=== PATIENT | female | born 1955 | race Caucasian/White ===

== ENCOUNTER 2016-12-08 17:00 | Emergency (ER) | payer OTHER ==
[~2016-12-08 17:00] MED LIST: ACTOS15 MG PO; ACTOS45 MG PO; ASPI-COR81 M1 PO; ASPIRIN81 M1 PO; ATENOLOL50 MG PO; BACTRIM DS 8001 TA1 PO; BUSPAR DIVIDOSE15 MG PO; BUSPIRONE15 MG PO; CIPRO250 MG PO; CIPROFLOXACIN500 MG PO; CLARITIN10 MG PO; DITROPAN XL15 MG PO; EC NAPROSYN500 MG PO; FEOSOL325 MG PO; FLOMAX0.4 MG PO; GLIPIZIDE10 MG; GLUCOPHAGE XR500 MG PO; HYDROCODONE BIT1 T11 PO; IMDUR ER30 MG PO; LANTUS100 U/ML SC; LISINOPRIL/HCTZ1 TA1 PO; LOTENSIN40 MG PO; MACROBID100 M1 PO; MEDROL DOSEPAK4 MG PO; METFORMIN1000 MG; METFORMIN500 MG PO; MOBIC15 MG PO; MOTRIN800 MG PO; NIACIN500 MG PO; NORVASC10 MG PO; PERCOCET 325 MG1 TA2 PO; PLAVIX75 M1 PO; PRILOSEC20 MG PO; PYRIDIUM200 MG PO; Phenergan25 MG PO; SIMVASTATIN40 MG PO; VESICARE10 MG PO; VICODIN 5/500 505 MG PO; VITAMIN D-32000 UNI1 PO; ZESTORETIC 12.51 TA2 PO; ZOCOR40 MG PO; ZOLOFT100 MG PO; Zofran4 MG PO
[2016-12-08 17:05] VITALS: BP 140/78
== END 2016-12-08 18:21 | disposition home or self-care (01) ==
LOC: ED 17:00
DX: S90.31XA Contusion of right foot, initial encounter (principal); Z95.5 Presence of coronary angioplasty implant and graft; Z87.891 Personal history of nicotine dependence; Z88.0 Allergy status to penicillin; Z88.1 Allergy status to other antibiotic agents; Z88.6 Allergy status to analgesic agent; Z79.82 Long term (current) use of aspirin; W20.8XXA Other cause of strike by thrown, projected or falling object, initial encounter; Y93.89 Activity, other specified; Y92.9 Unspecified place or not applicable; Y99.9 Unspecified external cause status

== ENCOUNTER → 2016-12-14 | Outpatient (CLI) | payer OTHER | END | disposition home or self-care (01) | LOC: MRI 10:21 | DX: M47.12 Other spondylosis with myelopathy, cervical region (principal) ==

== ENCOUNTER 2017-01-11 16:25 | Emergency (ER) | payer OTHER ==
[~2017-01-11] VITALS: Ht 152.4 cm; Wt 72.6 kg
[2017-01-11 16:35] VITALS: BP 156/72
[2017-01-11 17:00] LABS: BILIRUBIN NEGATIVE (NEGATIVE); BLOOD 3+ (NEGATIVE); CLARITY CLOUDY (CLEAR); COLOR YELLOW (YELLOW); GLUCOSE 3+ (NEGATIVE); KETONE NEGATIVE (NEGATIVE); LEUKO ESTERASE 2+ (NEGATIVE); NITRITE NEGATIVE (NEGATIVE); PH 5.5 (5.0-9.0); PROTEIN NEGATIVE (NEGATIVE); SPECIFIC GRAVITY <= 1.005 (1.005-1.030); UROBILINOGEN 0.2 E.U./dl (0.2-1.0)
[2017-01-11 17:16] LABS: BACTERIA TRACE; RBC TNTC rbc/hpf (0-2); URINE REFLEX COMMENT YES (NO)
[2017-01-11] MEDS ORDERED: PYRIDIUM200 M1 PO (17:38)
[2017-01-11] MEDS ORDERED: MACROBID100 M1 PO (17:38)
== END 2017-01-11 17:41 | disposition home or self-care (01) ==
LOC: ED 16:25
PROVIDERS: Nurse Practitioner Family
DX: N39.0 Urinary tract infection, site not specified (principal); R31.9 Hematuria, unspecified; Z88.0 Allergy status to penicillin; Z88.1 Allergy status to other antibiotic agents; Z88.6 Allergy status to analgesic agent; Z79.899 Other long term (current) drug therapy; Z79.82 Long term (current) use of aspirin

== ENCOUNTER → 2017-02-19 | Outpatient (CLI) | payer OTHER ==
[~2017-02-19] MED LIST changes: +B COMPLETE1 EACH PO; +GLIPIZIDE10 M2 PO; +IMDUR SA60 M1 PO; +NAPROXEN500 M1 PO; +NITROSTAT0.6 M1 SL; +PYRIDIUM200 M1 PO; +ZOLOFT50 MG PO
--- NOTE | ~2017-02-19 | ST ---
[place], [place] EXERCISE STRESS TEST REPORT NAME: JOSH GOLDMAN UNIT #: [id number] ROOM: DOCTOR: ARIAN CHAWLA MD BIRTHDATE: [birth year] DOS: 02/19/2017 Lexiscan portion of the Lexiscan Cardiolite. Baseline cardiogram sinus rhythm. With Lexiscan, no new EKG changes. No chest pain. Blood pressure and heart rate response was normal. FINAL IMPRESSION: No EKG changes with Lexiscan. No chest pain with Lexiscan. No dysrhythmia with Lexiscan. Blood pressure and heart rate response was normal. Nuclear images will be reported separately. ARIAN CHAWLA MD CM:STRESS:EXERCISE STRESS TEST REPORT [id number] ARIAN CHAWLA MD
== END | disposition home or self-care (01) ==
LOC: CARD 01:51
DX: R07.9 Chest pain, unspecified (principal); R53.81 Other malaise

== ENCOUNTER 2018-01-06 21:00 | Emergency (ER) | payer OTHER ==
[~2018-01-06] VITALS: Ht 152.4 cm; Wt 74.8 kg
--- NOTE | ~2018-01-06 | EKG ---
[place], [place] ELECTROCARDIOGRAM REPORT NAME: JOSH GOLDMAN UNIT #: [id number] ROOM: DOCTOR: COLUMBA MUNIZ MD BIRTHDATE: [birth year] DOS: 01/06/2018 TIME: 2142 hours. FINDINGS: 1. Sinus tachycardia at 116 beats per minute. 2. Incomplete right bundle-branch block. 3. No significant change from ECG of the previous day. COLUMBA MUNIZ MD CM:EKGRPT:ELECTROCARDIOGRAM REPORT [id number] COLUMBA MUNIZ MD
--- NOTE | ~2018-01-06 | EKG ---
[place], [place] ELECTROCARDIOGRAM REPORT NAME: JOSH GOLDMAN UNIT #: [id number] ROOM: DOCTOR: COLUMBA MUNIZ MD BIRTHDATE: [birth year] DOS: 01/06/2018 TIME: 2104 hours. FINDINGS: 1. Sinus tachycardia at 136 beats per minute. 2. Incomplete right bundle-branch block. 3. Mild upsloping ST segment depression in lateral chest lead. 4. No previous tracing is available for comparison. COLUMBA MUNIZ MD CM:EKGRPT:ELECTROCARDIOGRAM REPORT [id number] COLUMBA MUNIZ MD
--- NOTE | ~2018-01-06 | EKG ---
[place], [place] ELECTROCARDIOGRAM REPORT NAME: JOSH GOLDMAN UNIT #: [id number] ROOM: DOCTOR: COLUMBA MUNIZ MD BIRTHDATE: [birth year] DOS: 01/06/2018 TIME: 2222 hours. FINDINGS: 1. Sinus tachycardia at 128 beats per minute. 2. Incomplete right bundle-branch block. 3. Nonspecific upsloping ST segment depression in many chest leads. 4. No significant change from an ECG done about an hour and a half earlier. COLUMBA MUNIZ MD CM:EKGRPT:ELECTROCARDIOGRAM REPORT [id number] COLUMBA MUNIZ MD
[2018-01-06 21:24] LABS: BASO % 0.2 % (0.0-1.0); HEMATOCRIT 43.1 % (37.0-47.0); HEMOGLOBIN 14.2 g/dl (12.0-16.0); LYMPH # 1.7 10*3/uL (1.3-4.4); LYMPH % 11.7 % (27.0-41.0); MEAN CELL VOLUME 85.7 fl (81.0-99.0); MEAN CORPUSCULAR HGB 28.2 pg (27.0-31.0); MEAN CORPUSCULAR HGB CONC 32.9 g/dl (33.0-37.0); MEAN PLATELET VOLUME 11.8 fl (9.6-12.3); MONO # 0.1 10*3/uL (0.1-1.0); MONO % 0.8 % (3.0-9.0); NEUT # 12.3 10*3/uL (2.3-7.9); NEUT % 86.5 % (47.0-73.0); PLATELET COUNT AUTOMATED 257 10*3/uL (130-400); RED BLOOD COUNT 5.03 10*6/uL (4.10-5.10); RED CELL DISTRI WIDTH 13.7 % (0-14.5); WHITE BLOOD COUNT 14.3 10*3/uL (4.8-10.8)
[2018-01-06 22:00] LABS: ACT PARTIAL THROMBO TIME 21.9 SECONDS (20.8-31.5)
[2018-01-06 22:10] LABS: ALBUMIN 3.8 gm/dl (3.1-4.5); CREATININE 1.37 mg/dL (0.55-1.02); POTASSIUM 4.8 mmol/L (3.5-5.1); TOTAL PROTEIN 7.8 gm/dL (6.4-8.2)
[2018-01-06 22:13] LABS: TROPONIN I 0.805 ng/ml (<0.045)
[2018-01-06 22:57] VITALS: BP 131/74
== END 2018-01-07 03:19 | disposition short-term general hospital (02) ==
LOC: ED 21:00
PROVIDERS: Emergency Medicine Emergency Medical Services
DX: I20.0 Unstable angina (principal); E11.65 Type 2 diabetes mellitus with hyperglycemia; K21.9 Gastro-esophageal reflux disease without esophagitis; I10 Essential (primary) hypertension; M19.90 Unspecified osteoarthritis, unspecified site; Z98.890 Other specified postprocedural states; Z87.891 Personal history of nicotine dependence; Z95.5 Presence of coronary angioplasty implant and graft; Z79.899 Other long term (current) drug therapy; Z88.0 Allergy status to penicillin; Z88.1 Allergy status to other antibiotic agents; Z88.5 Allergy status to narcotic agent; Z79.82 Long term (current) use of aspirin

== ENCOUNTER → 2018-10-23 | Outpatient (CLI) | payer MEDICARE ==
[~2018-10-23] MED LIST changes: +BRILINTA90 M1 PO; +GLUCOPHAGE1000 MG PO; +HUMALOG100 UNIT/2 SQ; +LANTUS SOL100 UNIT/1 SC; +LISINOPRIL-HCT1 EACH PO; +NEURONTIN100 MG PO; +PRAVACHOL80 M1 PO; +RANEXA1000 M1 PO
--- NOTE | ~2018-10-23 | ST ---
[place], [place] EXERCISE STRESS TEST REPORT NAME: JOSH GOLDMAN UNIT #: [id number] ROOM: DOCTOR: SHERIN PEREZ [facility] BIRTHDATE: [birth year] DOS: 10/23/2018 LEXISCAN WITH CARDIOLITE The patient received Lexiscan 0.4 mg over 10 seconds. Isotope was injected. Heart rate is 113. No conclusive electrocardiographic changes for myocardial ischemia noted. No complication noted. The patient tolerated the procedure well. Myocardial perfusion scan to follow. IVETH DUFF MD CM:STRESS:EXERCISE STRESS TEST REPORT [id number] ARIAN DUFF MD [facility]
--- NOTE | 2018-10-23 09:45 | NUR ---
INFORMED CONSENT OBTAINED FOR A LEXISCAN STRESS TEST WITH DR. DUFF. RESTING EKG NSR WITH A HT RT OF 73 AND BP OF 120/64. POX 100% VIA RA, BREATH SOUNDS CLEAR. COMPLETED ONE MINUTE OF A LEXISCAN PROTOCOL RECIEVING LEXISCAN 0.4 MG OVER 10 SECONDS. DEVELOPED A "FUNNY FEELING" THAT WAS RELIEVED IN RECOVERY. HAD A PEAK HT RT OF 113, AND A BP OF 130/58. LAST RECOVERY HT RT OF 104 AND A BP OF 120/64. AWAITING NUCLEAR IMAGING IN STABLE CONDITION.
== END | disposition home or self-care (01) ==
LOC: CARD 02:02
DX: I25.110 Atherosclerotic heart disease of native coronary artery with unstable angina pectoris (principal)

== ENCOUNTER → 2019-03-30 | Outpatient (CLI) | payer MEDICARE, MEDICAID ==
[2019-03-30 09:41] LABS: BASO % 0.5 % (0.0-1.0); EOS # 0.2 10*3/uL (0.0-0.4); EOS % 2.7 % (1.0-4.0); HEMATOCRIT 40.2 % (37.0-47.0); HEMOGLOBIN 12.4 g/dl (12.0-16.0); LYMPH # 2.2 10*3/uL (1.3-4.4); LYMPH % 26.2 % (27.0-41.0); MEAN CELL VOLUME 88.4 fl (81.0-99.0); MEAN CORPUSCULAR HGB 27.3 pg (27.0-31.0); MEAN CORPUSCULAR HGB CONC 30.8 g/dl (33.0-37.0); MEAN PLATELET VOLUME 11.8 fl (9.6-12.3); MONO # 0.6 10*3/uL (0.1-1.0); MONO % 7.5 % (3.0-9.0); NEUT # 5.2 10*3/uL (2.3-7.9); NEUT % 62.6 % (47.0-73.0); PLATELET COUNT AUTOMATED 224 10*3/uL (130-400); RED BLOOD COUNT 4.55 10*6/uL (4.10-5.10); RED CELL DISTRI WIDTH 14.6 % (0-14.5); WHITE BLOOD COUNT 8.4 10*3/uL (4.8-10.8)
[2019-03-30 10:21] LABS: BUN 18 mg/dl (7-24); CHLORIDE 103 mmol/L (98-107); CHOLESTEROL 155 mg/dL (<200); POTASSIUM 4.3 mmol/L (3.5-5.1); SGOT/AST 21 IU/L (3-35); SGPT/ALT 18 U/L (12-78); SODIUM 139 mmol/L (136-145)
[2019-03-30 10:31] LABS: CREATININE 0.85 mg/dL (0.55-1.02); HDL CHOLESTEROL 41 mg/dl (40-60); LDL CHOLESTEROL 79 mg/dL (9-159); TRIGLYCERIDES 175 mg/dl (<150); VLDL CHOLESTEROL 35 mg/dL (6-40)
== END | disposition home or self-care (01) ==
LOC: LAB 09:09
PROVIDERS: Internal Medicine Cardiovascular Disease
DX: I25.119 Atherosclerotic heart disease of native coronary artery with unspecified angina pectoris (principal); R53.82 Chronic fatigue, unspecified

== ENCOUNTER → 2019-04-09 | Outpatient (CLI) | payer MEDICARE, MEDICAID ==
--- NOTE | ~2019-04-09 | ST ---
[place], [place] EXERCISE STRESS TEST REPORT NAME: JOSH GOLDMAN UNIT #: [id number] ROOM: DOCTOR: SHERIN PEREZ [facility] BIRTHDATE: [birth year] DOS: 04/09/2019 The patient received Lexiscan 0.4 mg over 10 seconds. Flattening of the ST segment, but not critical in inferior leads and heart rate obtained was 90, blood pressure response is good. No complication from the Lexiscan infusion and myocardial perfusion scan to follow. Heart rate is 102 at this time. Nuclear scan to follow. IVETH DUFF MD CM:STRESS:EXERCISE STRESS TEST REPORT [id number] IVETH DUFF MD [facility]
--- NOTE | 2019-04-09 12:00 | NUR ---
INFORMED CONSENT OBTAINED FOR LEXISCAN NUCLEAR STRESS TEST WITH DR. DUFF. RESTING EKG NSR WITH A RESTING HR OF 71 WITH BP OF 128/60. LUNGS CLEAR WITH SPO2 OF 99% ON ROOM AIR. PT COMPLETED A 1:00 LEXISCAN PROTOCOL RECEIVING LEXISCAN 0.4 MG IV OVER 10 SECONDS. HAD NO CHEST PAIN WITH NONDIAGNOSTIC ST CHANGES. HAD C/O FEELING SOB THAT WAS RELIEVED IN RECOVERY. HAD A PEAK HR OF 101 WITH BP OF 118/58. LAST RECOVERY HR OF 89 WITH BP OF 128/64. AWAITING SCANNING IN STABLE CONDITION.
== END | disposition home or self-care (01) ==
LOC: CARD 00:49
DX: I25.119 Atherosclerotic heart disease of native coronary artery with unspecified angina pectoris (principal); I10 Essential (primary) hypertension; R53.82 Chronic fatigue, unspecified; R06.02 Shortness of breath; Z95.5 Presence of coronary angioplasty implant and graft

== ENCOUNTER 2019-05-16 23:55 | Emergency (ER) | payer MEDICARE, MEDICAID ==
[~2019-05-16] VITALS: Wt 74.4 kg
[2019-05-17 00:15] LABS: BASO % 0.4 % (0.0-1.0); EOS # 0.3 10*3/uL (0.0-0.4); EOS % 3.2 % (1.0-4.0); HEMATOCRIT 40.7 % (37.0-47.0); LYMPH # 3.2 10*3/uL (1.3-4.4); LYMPH % 34.3 % (27.0-41.0); MEAN CELL VOLUME 86.8 fl (81.0-99.0); MEAN CORPUSCULAR HGB 27.7 pg (27.0-31.0); MEAN CORPUSCULAR HGB CONC 31.9 g/dl (33.0-37.0); MEAN PLATELET VOLUME 11.4 fl (9.6-12.3); MONO # 0.9 10*3/uL (0.1-1.0); MONO % 9.2 % (3.0-9.0); NEUT # 4.9 10*3/uL (2.3-7.9); NEUT % 52.5 % (47.0-73.0); PLATELET COUNT AUTOMATED 244 10*3/uL (130-400); RED BLOOD COUNT 4.69 10*6/uL (4.10-5.10); RED CELL DISTRI WIDTH 14.7 % (0-14.5); WHITE BLOOD COUNT 9.3 10*3/uL (4.8-10.8)
[2019-05-17 00:26] LABS: ACT PARTIAL THROMBO TIME 22.2 SECONDS (20.0-32.1); INTERNATIONAL NORM RATIO 0.9 (2.0-3.5)
[2019-05-17 00:32] LABS: ALBUMIN 3.8 gm/dl (3.1-4.5); CREATININE 1.23 mg/dL (0.55-1.02); POTASSIUM 3.8 mmol/L (3.5-5.1); TOTAL PROTEIN 7.5 gm/dL (6.4-8.2); TROPONIN I 0.037 ng/ml (<0.045)
[2019-05-17 00:50] VITALS: BP 201/107
== END 2019-05-17 03:15 | disposition short-term general hospital (02) ==
LOC: ED 23:55
PROVIDERS: Emergency Medicine Emergency Medical Services
DX: I25.9 Chronic ischemic heart disease, unspecified (principal); I25.10 Atherosclerotic heart disease of native coronary artery without angina pectoris; E11.9 Type 2 diabetes mellitus without complications; K21.9 Gastro-esophageal reflux disease without esophagitis; I10 Essential (primary) hypertension; I25.2 Old myocardial infarction; Z88.0 Allergy status to penicillin; Z88.1 Allergy status to other antibiotic agents; Z88.5 Allergy status to narcotic agent; Z79.82 Long term (current) use of aspirin; Z79.899 Other long term (current) drug therapy; Z87.891 Personal history of nicotine dependence

== ENCOUNTER 2019-06-24 20:56 | Emergency (ER) | payer MEDICARE, MEDICAID ==
[~2019-06-24] VITALS: Ht 162.5 cm; Wt 72.6 kg
[2019-06-24 21:00] VITALS: BP 126/74
[2019-06-24 21:13] LABS: BILIRUBIN NEGATIVE (NEGATIVE); BLOOD 3+ (NEGATIVE); CLARITY CLOUDY (CLEAR); COLOR YELLOW (YELLOW); GLUCOSE 2+ (NEGATIVE); KETONE NEGATIVE (NEGATIVE); LEUKO ESTERASE 1+ (NEGATIVE); NITRITE POSITIVE (NEGATIVE); UROBILINOGEN 0.2 E.U./dl (0.2-1.0)
[2019-06-24 21:43] LABS: BACTERIA 2+; WBC TNTC wbc/hpf (0-5)
[2019-06-24] MEDS ORDERED: PYRIDIUM100 MG PO (22:59)
[2019-06-24] MEDS ORDERED: CEPHALEXIN500 M1 PO (22:59)
== END 2019-06-24 23:28 | disposition home or self-care (01) ==
LOC: ED 20:56
PROVIDERS: Emergency Medicine
DX: N39.0 Urinary tract infection, site not specified (principal); I25.10 Atherosclerotic heart disease of native coronary artery without angina pectoris; E11.9 Type 2 diabetes mellitus without complications; K21.9 Gastro-esophageal reflux disease without esophagitis; I10 Essential (primary) hypertension; M19.90 Unspecified osteoarthritis, unspecified site; I25.2 Old myocardial infarction; E78.00 Pure hypercholesterolemia, unspecified; Z88.0 Allergy status to penicillin; Z88.1 Allergy status to other antibiotic agents; Z79.899 Other long term (current) drug therapy; Z79.82 Long term (current) use of aspirin; Z79.4 Long term (current) use of insulin; Z95.5 Presence of coronary angioplasty implant and graft

== ENCOUNTER 2019-10-14 18:39 | Emergency (ER) | payer OTHER ==
[~2019-10-14] VITALS: Ht 152.4 cm; Wt 72.1 kg
[~2019-10-14 18:39] MED LIST changes: +CEPHALEXIN500 M1 PO; +PYRIDIUM100 MG PO
[2019-10-14 19:02] LABS: BASO # 0.1 10*3/uL (0.0-0.1); BASO % 0.4 % (0.0-1.0); EOS # 0.4 10*3/uL (0.0-0.4); EOS % 3.7 % (1.0-4.0); HEMATOCRIT 40.9 % (37.0-47.0); HEMOGLOBIN 12.4 g/dl (12.0-16.0); LYMPH % 17.8 % (27.0-41.0); MEAN CELL VOLUME 80.8 fl (81.0-99.0); MEAN CORPUSCULAR HGB 24.5 pg (27.0-31.0); MEAN CORPUSCULAR HGB CONC 30.3 g/dl (33.0-37.0); MEAN PLATELET VOLUME 10.5 fl (9.6-12.3); MONO # 0.7 10*3/uL (0.1-1.0); MONO % 6.2 % (3.0-9.0); NEUT # 8.2 10*3/uL (2.3-7.9); NEUT % 71.6 % (47.0-73.0); PLATELET COUNT AUTOMATED 246 10*3/uL (130-400); RED BLOOD COUNT 5.06 10*6/uL (4.10-5.10); RED CELL DISTRI WIDTH 16.7 % (0-14.5); WHITE BLOOD COUNT 11.5 10*3/uL (4.8-10.8)
[2019-10-14 19:13] LABS: ACT PARTIAL THROMBO TIME 22.7 SECONDS (20.0-32.1); INTERNATIONAL NORM RATIO 0.9 (2.0-3.5)
[2019-10-14 19:18] LABS: ALBUMIN 3.5 gm/dl (3.1-4.5); CREATININE 1.22 mg/dL (0.55-1.02); POTASSIUM 4.1 mmol/L (3.5-5.1); TOTAL PROTEIN 7.3 gm/dL (6.4-8.2)
[2019-10-14 19:30] LABS: TROPONIN I 3.14 ng/ml (<0.045)
[2019-10-14 20:32] VITALS: BP 134/58
== END 2019-10-14 21:25 | disposition short-term general hospital (02) ==
LOC: ED 18:39
PROVIDERS: Emergency Medicine
DX: I21.4 Non-ST elevation (NSTEMI) myocardial infarction (principal); I25.10 Atherosclerotic heart disease of native coronary artery without angina pectoris; I25.2 Old myocardial infarction; K21.9 Gastro-esophageal reflux disease without esophagitis; I10 Essential (primary) hypertension; M19.90 Unspecified osteoarthritis, unspecified site; J44.9 Chronic obstructive pulmonary disease, unspecified; E78.00 Pure hypercholesterolemia, unspecified; Z79.82 Long term (current) use of aspirin; Z87.891 Personal history of nicotine dependence; Z88.0 Allergy status to penicillin; Z88.1 Allergy status to other antibiotic agents; Z88.5 Allergy status to narcotic agent; Z79.2 Long term (current) use of antibiotics; Z79.899 Other long term (current) drug therapy; Z79.4 Long term (current) use of insulin

== ENCOUNTER 2020-03-27 00:20 | Observation (INO) | payer OTHER ==
[~2020-03-27] VITALS: Ht 152.4 cm; Wt 74.5 kg
[~2020-03-27 00:20] MED LIST changes: +CLOPIDOGREL75 MG PO; +GABAPENTIN400 MG PO; +ISOSORBIDE MON120 MG PO; +LISINOPRIL2.5 MG PO; +METOPROLOL SUCC50 M1 PO
[2020-03-27 00:32] LABS: BASO % 0.3 % (0.0-1.0); EOS # 0.2 10*3/uL (0.0-0.4); EOS % 1.9 % (1.0-4.0); HEMATOCRIT 39.2 % (37.0-47.0); LYMPH # 2.1 10*3/uL (1.3-4.4); LYMPH % 20.5 % (27.0-41.0); MEAN CELL VOLUME 77.5 fl (81.0-99.0); MEAN CORPUSCULAR HGB 22.7 pg (27.0-31.0); MEAN CORPUSCULAR HGB CONC 29.3 g/dl (33.0-37.0); MEAN PLATELET VOLUME 10.2 fl (9.6-12.3); MONO # 0.6 10*3/uL (0.1-1.0); NEUT # 7.4 10*3/uL (2.3-7.9); NEUT % 70.8 % (47.0-73.0); PLATELET COUNT AUTOMATED 261 10*3/uL (130-400); RED BLOOD COUNT 5.06 10*6/uL (4.10-5.10); RED CELL DISTRI WIDTH 17.3 % (0-14.5); WHITE BLOOD COUNT 10.4 10*3/uL (4.8-10.8)
[2020-03-27 00:42] LABS: ACT PARTIAL THROMBO TIME 23.1 SECONDS (20.0-32.1)
[2020-03-27 00:48] LABS: ALBUMIN 3.6 gm/dl (3.1-4.5); ALKALINE PHOSPHATASE 72 U/L (45-117); BUN 16 mg/dl (7-24); CHLORIDE 109 mmol/L (98-107); POTASSIUM 3.6 mmol/L (3.5-5.1); SGOT/AST 16 IU/L (3-35); SGPT/ALT 15 U/L (12-78); SODIUM 140 mmol/L (136-145); TOTAL PROTEIN 7.6 gm/dL (6.4-8.2)
[2020-03-27 00:49] LABS: TROPONIN I 0.031 ng/ml (<0.045)
[2020-03-27 01:10] VITALS: BP 154/78
[2020-03-27 02:07] VITALS: BP 142/76
[2020-03-27 04:55] VITALS: BP 158/64
[2020-03-27] MEDS ORDERED: ARTHRITIS PAIN650 M3 PO (05:24)
[2020-03-27] MEDS ORDERED: TRICOR145 M1 PO (05:27)
[2020-03-27 06:37] LABS: BASO % 0.4 % (0.0-1.0); EOS % 0.5 % (1.0-4.0); HEMATOCRIT 34.1 % (37.0-47.0); LYMPH # 1.8 10*3/uL (1.3-4.4); LYMPH % 22.5 % (27.0-41.0); MEAN CELL VOLUME 77.5 fl (81.0-99.0); MEAN CORPUSCULAR HGB 22.7 pg (27.0-31.0); MEAN CORPUSCULAR HGB CONC 29.3 g/dl (33.0-37.0); MEAN PLATELET VOLUME 9.9 fl (9.6-12.3); MONO # 0.7 10*3/uL (0.1-1.0); NEUT # 5.6 10*3/uL (2.3-7.9); NEUT % 68.2 % (47.0-73.0); PLATELET COUNT AUTOMATED 210 10*3/uL (130-400); RED CELL DISTRI WIDTH 17.1 % (0-14.5); WHITE BLOOD COUNT 8.2 10*3/uL (4.8-10.8)
[2020-03-27 07:07] LABS: BUN 17 mg/dl (7-24); CHLORIDE 112 mmol/L (98-107); CREATININE 0.69 mg/dL (0.55-1.02); POTASSIUM 4.2 mmol/L (3.5-5.1); SODIUM 142 mmol/L (136-145)
[2020-03-27 08:00] VITALS: BP 138/59
[2020-03-27] MEDS ORDERED: ENOXAPARIN100 MG/1 M SC (09:03)
[2020-03-27] MEDS ORDERED: LOPRESSOR25 MG PO (09:04)
== END 2020-03-27 09:24 | disposition short-term general hospital (02) ==
LOC: ED 00:20 → EDHOLD 03:41 → 5E 03:41 → ICCU 04:59
PROVIDERS: Emergency Medicine Emergency Medical Services; Internal Medicine; ADMIT Student in an Organized Health Care Education/Training Program
DX: I21.4 Non-ST elevation (NSTEMI) myocardial infarction (principal); R00.0 Tachycardia, unspecified; E87.8 Other disorders of electrolyte and fluid balance, not elsewhere classified; E11.65 Type 2 diabetes mellitus with hyperglycemia; I25.10 Atherosclerotic heart disease of native coronary artery without angina pectoris; K21.9 Gastro-esophageal reflux disease without esophagitis; I11.0 Hypertensive heart disease with heart failure; I50.9 Heart failure, unspecified; D50.9 Iron deficiency anemia, unspecified

== ENCOUNTER → 2020-06-13 | Outpatient (CLI) | payer MEDICARE ==
[~2020-06-13] MED LIST changes: +ARTHRITIS PAIN650 M3 PO; +ENOXAPARIN100 MG/1 M SC; +LOPRESSOR25 MG PO; +TRICOR145 M1 PO
[2020-06-13 11:39] LABS: BASO % 0.4 % (0.0-1.0); EOS # 0.3 10*3/uL (0.0-0.4); EOS % 2.9 % (1.0-4.0); HEMATOCRIT 34.6 % (37.0-47.0); LYMPH # 2.1 10*3/uL (1.3-4.4); LYMPH % 22.8 % (27.0-41.0); MEAN CELL VOLUME 75.2 fl (81.0-99.0); MEAN CORPUSCULAR HGB 21.3 pg (27.0-31.0); MEAN CORPUSCULAR HGB CONC 28.3 g/dl (33.0-37.0); MEAN PLATELET VOLUME 10.9 fl (9.6-12.3); MONO # 0.7 10*3/uL (0.1-1.0); NEUT # 5.9 10*3/uL (2.3-7.9); NEUT % 65.6 % (47.0-73.0); PLATELET COUNT AUTOMATED 305 10*3/uL (130-400); RED CELL DISTRI WIDTH 17.2 % (0-14.5)
== END | disposition home or self-care (01) ==
LOC: LAB 11:00
PROVIDERS: ATTEND Nurse Practitioner Family
DX: D50.0 Iron deficiency anemia secondary to blood loss (chronic) (principal)

== ENCOUNTER 2020-12-09 21:29 | Observation (INO) | payer OTHER ==
[~2020-12-09] VITALS: Ht 152 cm; Wt 70.8 kg
[2020-12-09 21:36] VITALS: BP 104/66
[2020-12-09 21:51] LABS: BASO % 0.4 % (0.0-1.0); EOS # 0.3 10*3/uL (0.0-0.4); EOS % 3.6 % (1.0-4.0); HEMATOCRIT 35.3 % (37.0-47.0); LYMPH # 2.8 10*3/uL (1.3-4.4); LYMPH % 38.8 % (27.0-41.0); MEAN CORPUSCULAR HGB 21.4 pg (27.0-31.0); MEAN CORPUSCULAR HGB CONC 28.9 g/dl (33.0-37.0); MEAN PLATELET VOLUME 9.8 fl (9.6-12.3); MONO # 0.6 10*3/uL (0.1-1.0); NEUT # 3.5 10*3/uL (2.3-7.9); NEUT % 48.8 % (47.0-73.0); PLATELET COUNT AUTOMATED 238 10*3/uL (130-400); RED BLOOD COUNT 4.77 10*6/uL (4.10-5.10); RED CELL DISTRI WIDTH 18.9 % (0-14.5); WHITE BLOOD COUNT 7.2 10*3/uL (4.8-10.8)
[2020-12-09 22:04] LABS: ACT PARTIAL THROMBO TIME 21.6 SECONDS (20.0-32.1)
[2020-12-09 22:09] LABS: ALBUMIN 3.5 gm/dl (3.1-4.5); ALKALINE PHOSPHATASE 67 U/L (45-117); BUN 21 mg/dl (7-24); CHLORIDE 104 mmol/L (98-107); CREATININE 1.09 mg/dL (0.55-1.02); POTASSIUM 3.7 mmol/L (3.5-5.1); SGOT/AST 16 IU/L (3-35); SGPT/ALT 15 U/L (12-78); SODIUM 136 mmol/L (136-145); TOTAL PROTEIN 7.1 gm/dL (6.4-8.2)
[2020-12-09 22:10] LABS: TROPONIN I 0.038 ng/ml (<0.045)
[2020-12-09 23:35] VITALS: BP 96/60
[2020-12-10 00:06] VITALS: BP 140/100
[2020-12-10] MEDS ORDERED: METOPROLOL SUCC50 M1 PO (00:14)
[2020-12-10] MEDS ORDERED: NEURONTIN400 MG PO (00:14)
[2020-12-10] MEDS ORDERED: LISINOPRIL20 MG PO (00:16)
[2020-12-10] MEDS ORDERED: HYDR25T PO (00:17)
[2020-12-10] MEDS ORDERED: PROTONIX TR40 MG PO (00:19)
[2020-12-10 06:27] LABS: CHLORIDE 106 mmol/L (98-107); POTASSIUM 3.9 mmol/L (3.5-5.1); SGPT/ALT 16 U/L (12-78); SODIUM 137 mmol/L (136-145)
[2020-12-10 06:30] LABS: BASO # 0.1 10*3/uL (0.0-0.1); BASO % 0.7 % (0.0-1.0); EOS # 0.4 10*3/uL (0.0-0.4); EOS % 5.1 % (1.0-4.0); LYMPH # 3.2 10*3/uL (1.3-4.4); LYMPH % 42.1 % (27.0-41.0); MEAN CELL VOLUME 74.2 fl (81.0-99.0); MEAN CORPUSCULAR HGB CONC 28.2 g/dl (33.0-37.0); MEAN PLATELET VOLUME 10.2 fl (9.6-12.3); MONO # 0.6 10*3/uL (0.1-1.0); NEUT # 3.3 10*3/uL (2.3-7.9); NEUT % 43.7 % (47.0-73.0); PLATELET COUNT AUTOMATED 225 10*3/uL (130-400); RED BLOOD COUNT 4.58 10*6/uL (4.10-5.10); RED CELL DISTRI WIDTH 19.2 % (0-14.5); WHITE BLOOD COUNT 7.5 10*3/uL (4.8-10.8)
[2020-12-10 06:46] LABS: ALBUMIN 3.5 gm/dl (3.1-4.5); ALKALINE PHOSPHATASE 48 U/L (45-117); BUN 20 mg/dl (7-24); CHOLESTEROL 163 mg/dL (<200); CREATININE 0.77 mg/dL (0.55-1.02); HDL CHOLESTEROL 43 mg/dl (40-60); LDL CHOLESTEROL 64 mg/dL (9-159); SGOT/AST 16 IU/L (3-35); TOTAL PROTEIN 6.9 gm/dL (6.4-8.2); TRIGLYCERIDES 278 mg/dl (<150); VLDL CHOLESTEROL 56 mg/dL (6-40)
[2020-12-10 07:30] LABS: VITAMIN D, 25-HYDROXY 63.6 ng/mL (30-100)
[2020-12-10 12:00] VITALS: BP 137/56
[2020-12-10 16:00] VITALS: BP 155/58
[2020-12-10 20:00] VITALS: BP 140/56
[2020-12-11] VITALS: BP 112/51
[2020-12-11 06:14] LABS: CREATININE 1.51 mg/dL (0.55-1.02); POTASSIUM 4.3 mmol/L (3.5-5.1)
[2020-12-11 08:00] VITALS: BP 115/49
[2020-12-11 12:00] VITALS: BP 139/46
[2020-12-11 16:00] VITALS: BP 131/45
[2020-12-11 20:00] VITALS: BP 133/58
[2020-12-12] VITALS: BP 130/53
[2020-12-12 06:21] LABS: BASO % 0.3 % (0.0-1.0); EOS # 0.3 10*3/uL (0.0-0.4); EOS % 4.2 % (1.0-4.0); HEMATOCRIT 35.7 % (37.0-47.0); LYMPH # 2.5 10*3/uL (1.3-4.4); LYMPH % 34.9 % (27.0-41.0); MEAN CELL VOLUME 74.5 fl (81.0-99.0); MEAN CORPUSCULAR HGB 21.5 pg (27.0-31.0); MEAN CORPUSCULAR HGB CONC 28.9 g/dl (33.0-37.0); MONO # 0.6 10*3/uL (0.1-1.0); MONO % 8.4 % (3.0-9.0); NEUT # 3.7 10*3/uL (2.3-7.9); NEUT % 51.6 % (47.0-73.0); PLATELET COUNT AUTOMATED 222 10*3/uL (130-400); RED BLOOD COUNT 4.79 10*6/uL (4.10-5.10); WHITE BLOOD COUNT 7.2 10*3/uL (4.8-10.8)
[2020-12-12 06:42] LABS: ALBUMIN 3.3 gm/dl (3.1-4.5); ALKALINE PHOSPHATASE 42 U/L (45-117); BUN 19 mg/dl (7-24); CHLORIDE 103 mmol/L (98-107); CREATININE 0.87 mg/dL (0.55-1.02); POTASSIUM 4.9 mmol/L (3.5-5.1); SGOT/AST 19 IU/L (3-35); SGPT/ALT 15 U/L (12-78); SODIUM 135 mmol/L (136-145); TOTAL PROTEIN 6.7 gm/dL (6.4-8.2)
[2020-12-12 08:00] VITALS: BP 124/62
[2020-12-12 12:00] VITALS: BP 133/58
[2020-12-12 16:00] VITALS: BP 153/50
== END 2020-12-12 16:55 | disposition short-term general hospital (02) ==
LOC: ED 21:29 → 5E 22:54 → EDHOLD 22:54 → 5E 23:13
PROVIDERS: Emergency Medicine; Internal Medicine; Student in an Organized Health Care Education/Training Program; ADMIT Student in an Organized Health Care Education/Training Program; ATTEND Student in an Organized Health Care Education/Training Program
DX: I21.4 Non-ST elevation (NSTEMI) myocardial infarction (principal); N17.0 Acute kidney failure with tubular necrosis; R00.0 Tachycardia, unspecified; I25.10 Atherosclerotic heart disease of native coronary artery without angina pectoris; K21.9 Gastro-esophageal reflux disease without esophagitis; E11.9 Type 2 diabetes mellitus without complications; I11.0 Hypertensive heart disease with heart failure; I50.9 Heart failure, unspecified; D50.9 Iron deficiency anemia, unspecified; E11.65 Type 2 diabetes mellitus with hyperglycemia; E78.5 Hyperlipidemia, unspecified; M19.90 Unspecified osteoarthritis, unspecified site; J96.10 Chronic respiratory failure, unspecified whether with hypoxia or hypercapnia; Z88.1 Allergy status to other antibiotic agents; Z88.0 Allergy status to penicillin; Z88.8 Allergy status to other drugs, medicaments and biological substances

== ENCOUNTER 2020-12-29 20:48 | Emergency (ER) | payer OTHER ==
[~2020-12-29] VITALS: Ht 152.4 cm; Wt 73.2 kg
[~2020-12-29 20:48] MED LIST changes: +HYDR25T PO; +LISINOPRIL20 MG PO; +NEURONTIN400 MG PO; +PROTONIX TR40 MG PO
[2020-12-29 21:07] LABS: BASO % 0.5 % (0.0-1.0); EOS # 0.3 10*3/uL (0.0-0.4); EOS % 3.9 % (1.0-4.0); HEMATOCRIT 35.7 % (37.0-47.0); LYMPH # 2.9 10*3/uL (1.3-4.4); LYMPH % 36.4 % (27.0-41.0); MEAN CORPUSCULAR HGB 21.5 pg (27.0-31.0); MEAN CORPUSCULAR HGB CONC 29.4 g/dl (33.0-37.0); MEAN PLATELET VOLUME 10.5 fl (9.6-12.3); MONO # 0.8 10*3/uL (0.1-1.0); MONO % 9.7 % (3.0-9.0); NEUT # 3.9 10*3/uL (2.3-7.9); NEUT % 49.2 % (47.0-73.0); PLATELET COUNT AUTOMATED 279 10*3/uL (130-400); RED BLOOD COUNT 4.89 10*6/uL (4.10-5.10); WHITE BLOOD COUNT 7.9 10*3/uL (4.8-10.8)
[2020-12-29 21:21] LABS: ACT PARTIAL THROMBO TIME 20.4 SECONDS (20.0-32.1)
[2020-12-29 21:23] LABS: ALBUMIN 3.6 gm/dl (3.1-4.5); ALKALINE PHOSPHATASE 94 U/L (45-117); BUN 24 mg/dl (7-24); CHLORIDE 101 mmol/L (98-107); CREATININE 1.04 mg/dL (0.55-1.02); POTASSIUM 4.2 mmol/L (3.5-5.1); SGOT/AST 31 IU/L (3-35); SGPT/ALT 16 U/L (12-78); SODIUM 135 mmol/L (136-145); TOTAL PROTEIN 7.4 gm/dL (6.4-8.2)
[2020-12-30 02:08] VITALS: BP 116/75
== END 2020-12-30 03:04 | disposition short-term general hospital (02) ==
LOC: ED 20:48
PROVIDERS: Emergency Medicine
DX: I21.4 Non-ST elevation (NSTEMI) myocardial infarction (principal); E11.9 Type 2 diabetes mellitus without complications; I25.10 Atherosclerotic heart disease of native coronary artery without angina pectoris; I11.0 Hypertensive heart disease with heart failure; I50.9 Heart failure, unspecified; Z87.891 Personal history of nicotine dependence; Z95.5 Presence of coronary angioplasty implant and graft; Z79.82 Long term (current) use of aspirin; Z79.899 Other long term (current) drug therapy; Z88.0 Allergy status to penicillin; Z88.1 Allergy status to other antibiotic agents; Z88.5 Allergy status to narcotic agent

== ENCOUNTER → 2021-03-02 | Outpatient (CLI) | payer OTHER | END | disposition home or self-care (01) | LOC: RAD 10:51 | PROVIDERS: ATTEND Internal Medicine | DX: M50.30 Other cervical disc degeneration, unspecified cervical region (principal); M47.812 Spondylosis without myelopathy or radiculopathy, cervical region; M48.02 Spinal stenosis, cervical region; M25.78 Osteophyte, vertebrae ==

== ENCOUNTER 2021-05-14 03:30 | Inpatient (IN) | payer OTHER ==
[~2021-05-14] VITALS: Ht 152.4 cm; Wt 72.7 kg
[2021-05-14] VITALS (11 sets, daily range): BP systolic 75–170; BP diastolic 42–87
[2021-05-14 03:56] LABS: BASO % 0.5 % (0.0-1.0); EOS # 0.3 10*3/uL (0.0-0.4); EOS % 3.8 % (1.0-4.0); HEMATOCRIT 33.8 % (37.0-47.0); LYMPH # 2.5 10*3/uL (1.3-4.4); LYMPH % 33.7 % (27.0-41.0); MEAN CELL VOLUME 72.2 fl (81.0-99.0); MEAN CORPUSCULAR HGB 20.9 pg (27.0-31.0); MEAN PLATELET VOLUME 10.3 fl (9.6-12.3); MONO # 0.6 10*3/uL (0.1-1.0); MONO % 7.8 % (3.0-9.0); NEUT # 3.9 10*3/uL (2.3-7.9); NEUT % 53.7 % (47.0-73.0); PLATELET COUNT AUTOMATED 236 10*3/uL (130-400); RED BLOOD COUNT 4.68 10*6/uL (4.10-5.10); RED CELL DISTRI WIDTH 19.2 % (0-14.5); WHITE BLOOD COUNT 7.3 10*3/uL (4.8-10.8)
[2021-05-14 04:16] LABS: ALBUMIN 3.4 gm/dl (3.1-4.5); CREATININE 1.23 mg/dL (0.55-1.02); POTASSIUM 3.6 mmol/L (3.5-5.1); TOTAL PROTEIN 7.4 gm/dL (6.4-8.2)
[2021-05-14 04:17] LABS: TROPONIN I 0.027 ng/ml (<0.045)
[2021-05-14 11:32] LABS: BILIRUBIN Negative (Negative); BLOOD Negative (Negative); CLARITY Clear (Clear); COLOR Yellow (Yellow); GLUCOSE Negative (Negative); KETONE Negative (Negative); LEUKO ESTERASE 2+ (Negative); NITRITE Negative (Negative); UROBILINOGEN 0.2 E.U./dl (0.0-1.0)
[2021-05-14 11:46] LABS: BACTERIA TRACE
[2021-05-14 11:47] LABS: WBC 31-40 wbc/hpf (0-5)
[2021-05-15] VITALS: BP 131/50
[2021-05-15 06:28] LABS: ALBUMIN 2.9 gm/dl (3.1-4.5); ALKALINE PHOSPHATASE 40 U/L (45-117); BUN 18 mg/dl (7-24); CHLORIDE 107 mmol/L (98-107); CHOLESTEROL 140 mg/dL (<200); CREATININE 0.79 mg/dL (0.55-1.02); LDL CHOLESTEROL 61 mg/dL (9-159); POTASSIUM 4.4 mmol/L (3.5-5.1); SGOT/AST 27 IU/L (3-35); SGPT/ALT 16 U/L (12-78); SODIUM 140 mmol/L (136-145); TOTAL PROTEIN 6.3 gm/dL (6.4-8.2); TRIGLYCERIDES 195 mg/dl (<150)
[2021-05-15 06:29] LABS: BASO % 0.4 % (0.0-1.0); EOS # 0.4 10*3/uL (0.0-0.4); EOS % 5.3 % (1.0-4.0); HEMATOCRIT 29.7 % (37.0-47.0); LYMPH # 2.6 10*3/uL (1.3-4.4); LYMPH % 33.7 % (27.0-41.0); MEAN CELL VOLUME 72.8 fl (81.0-99.0); MEAN CORPUSCULAR HGB 20.8 pg (27.0-31.0); MEAN CORPUSCULAR HGB CONC 28.6 g/dl (33.0-37.0); MEAN PLATELET VOLUME 10.6 fl (9.6-12.3); MONO # 0.6 10*3/uL (0.1-1.0); MONO % 8.1 % (3.0-9.0); NEUT # 3.9 10*3/uL (2.3-7.9); NEUT % 51.8 % (47.0-73.0); PLATELET COUNT AUTOMATED 211 10*3/uL (130-400); RED BLOOD COUNT 4.08 10*6/uL (4.10-5.10); RED CELL DISTRI WIDTH 18.8 % (0-14.5); WHITE BLOOD COUNT 7.6 10*3/uL (4.8-10.8)
[2021-05-15 07:35] LABS: VITAMIN D, 25-HYDROXY 58.1 ng/mL (30-100)
[2021-05-15 08:00] VITALS: BP 118/39
[2021-05-15 12:00] VITALS: BP 137/46
[2021-05-15 16:00] VITALS: BP 116/37
[2021-05-15 20:00] VITALS: BP 107/38
[2021-05-16] VITALS: BP 128/54
[2021-05-16 07:27] LABS: BASO % 0.6 % (0.0-1.0); EOS # 0.3 10*3/uL (0.0-0.4); HEMATOCRIT 31.3 % (37.0-47.0); LYMPH # 2.5 10*3/uL (1.3-4.4); LYMPH % 37.1 % (27.0-41.0); MEAN CELL VOLUME 74.2 fl (81.0-99.0); MEAN CORPUSCULAR HGB 20.9 pg (27.0-31.0); MEAN CORPUSCULAR HGB CONC 28.1 g/dl (33.0-37.0); MEAN PLATELET VOLUME 10.1 fl (9.6-12.3); MONO # 0.6 10*3/uL (0.1-1.0); MONO % 9.2 % (3.0-9.0); NEUT # 3.3 10*3/uL (2.3-7.9); NEUT % 48.5 % (47.0-73.0); PLATELET COUNT AUTOMATED 207 10*3/uL (130-400); RED BLOOD COUNT 4.22 10*6/uL (4.10-5.10); RED CELL DISTRI WIDTH 19.3 % (0-14.5); WHITE BLOOD COUNT 6.7 10*3/uL (4.8-10.8)
[2021-05-16 07:45] LABS: BUN 13 mg/dl (7-24); CHLORIDE 106 mmol/L (98-107); CREATININE 0.81 mg/dL (0.55-1.02); POTASSIUM 4.5 mmol/L (3.5-5.1); SODIUM 138 mmol/L (136-145)
[2021-05-16 08:00] VITALS: BP 120/44; BP 124/71
[2021-05-16 12:00] VITALS: BP 110/49
[2021-05-16 16:00] VITALS: BP 114/55
[2021-05-16 19:53] VITALS: BP 141/39
[2021-05-16 23:00] VITALS: BP 129/57
[2021-05-17 05:59] LABS: BUN 17 mg/dl (7-24); CHLORIDE 107 mmol/L (98-107); POTASSIUM 4.6 mmol/L (3.5-5.1); SODIUM 139 mmol/L (136-145)
[2021-05-17 06:15] LABS: BASO % 0.6 % (0.0-1.0); EOS # 0.2 10*3/uL (0.0-0.4); EOS % 3.1 % (1.0-4.0); HEMATOCRIT 30.2 % (37.0-47.0); LYMPH % 29.1 % (27.0-41.0); MEAN CELL VOLUME 72.8 fl (81.0-99.0); MEAN CORPUSCULAR HGB 20.5 pg (27.0-31.0); MEAN CORPUSCULAR HGB CONC 28.1 g/dl (33.0-37.0); MEAN PLATELET VOLUME 10.1 fl (9.6-12.3); MONO # 0.7 10*3/uL (0.1-1.0); MONO % 10.3 % (3.0-9.0); NEUT # 3.8 10*3/uL (2.3-7.9); NEUT % 56.5 % (47.0-73.0); PLATELET COUNT AUTOMATED 210 10*3/uL (130-400); RED BLOOD COUNT 4.15 10*6/uL (4.10-5.10); WHITE BLOOD COUNT 6.7 10*3/uL (4.8-10.8)
[2021-05-17 08:00] VITALS: BP 119/40
[2021-05-17 10:30] VITALS: BP 144/46
[2021-05-17 14:20] VITALS: BP 146/64
[2021-05-17 16:00] VITALS: BP 111/87
== END 2021-05-17 19:00 | disposition home or self-care (01) | DRG 280 ==
LOC: ED 03:30 → 5E 04:39 → EDHOLD 04:39 → 5E 12:21
PROVIDERS: Hospitalist; Internal Medicine; ADMIT Internal Medicine; ATTEND Internal Medicine
DX: I21.4 Non-ST elevation (NSTEMI) myocardial infarction (principal); N17.0 Acute kidney failure with tubular necrosis; N39.0 Urinary tract infection, site not specified; I13.0 Hypertensive heart and chronic kidney disease with heart failure and stage 1 through stage 4 chronic kidney disease, or unspecified chronic kidney disease; I50.32 Chronic diastolic (congestive) heart failure; K21.9 Gastro-esophageal reflux disease without esophagitis; N18.9 Chronic kidney disease, unspecified; E78.5 Hyperlipidemia, unspecified; I95.9 Hypotension, unspecified; E11.22 Type 2 diabetes mellitus with diabetic chronic kidney disease; Z79.4 Long term (current) use of insulin; M19.91 Primary osteoarthritis, unspecified site; I25.110 Atherosclerotic heart disease of native coronary artery with unstable angina pectoris; E11.65 Type 2 diabetes mellitus with hyperglycemia; I25.2 Old myocardial infarction; Z95.5 Presence of coronary angioplasty implant and graft; Z88.0 Allergy status to penicillin; Z88.1 Allergy status to other antibiotic agents; Z88.5 Allergy status to narcotic agent; Z82.3 Family history of stroke; Z82.49 Family history of ischemic heart disease and other diseases of the circulatory system; Z83.3 Family history of diabetes mellitus; Z79.899 Other long term (current) drug therapy; Z87.891 Personal history of nicotine dependence

== ENCOUNTER → 2021-07-14 | Outpatient (CLI) | payer OTHER | END | disposition home or self-care (01) | LOC: COVID19 15:54 | PROVIDERS: ATTEND Podiatrist Foot & Ankle Surgery | DX: Z11.52 Encounter for screening for COVID-19 (principal) ==

== ENCOUNTER → 2021-11-22 | Outpatient (CLI) | payer OTHER | END | disposition home or self-care (01) | LOC: MRI 11-20 10:00 | PROVIDERS: ATTEND Internal Medicine | DX: M50.322 Other cervical disc degeneration at C5-C6 level (principal); M48.02 Spinal stenosis, cervical region; M51.34 Other intervertebral disc degeneration, thoracic region ==

== ENCOUNTER 2022-01-19 02:36 | Emergency (ER) | payer OTHER ==
[~2022-01-19] VITALS: Ht 152.4 cm; Wt 71.2 kg
[2022-01-19 03:59] LABS: BASO # 0.1 10*3/uL (0.0-0.1); BASO % 0.6 % (0.0-1.0); EOS # 0.3 10*3/uL (0.0-0.4); EOS % 3.2 % (1.0-4.0); HEMATOCRIT 34.7 % (37.0-47.0); LYMPH # 2.3 10*3/uL (1.3-4.4); LYMPH % 29.3 % (27.0-41.0); MEAN CELL VOLUME 75.9 fl (81.0-99.0); MEAN CORPUSCULAR HGB CONC 30.3 g/dl (33.0-37.0); MEAN PLATELET VOLUME 10.4 fl (9.6-12.3); MONO # 0.7 10*3/uL (0.1-1.0); NEUT # 4.6 10*3/uL (2.3-7.9); NEUT % 57.5 % (47.0-73.0); PLATELET COUNT AUTOMATED 229 10*3/uL (130-400); RED BLOOD COUNT 4.57 10*6/uL (4.10-5.10); RED CELL DISTRI WIDTH 23.2 % (0-14.5); WHITE BLOOD COUNT 7.9 10*3/uL (4.8-10.8)
[2022-01-19 04:13] LABS: ALKALINE PHOSPHATASE 66 U/L (45-117); BUN 18 mg/dl (7-24); CHLORIDE 106 mmol/L (98-107); CREATININE 0.92 mg/dL (0.55-1.02); POTASSIUM 3.8 mmol/L (3.5-5.1); SGOT/AST 17 IU/L (3-35); SGPT/ALT 12 U/L (12-78); SODIUM 140 mmol/L (136-145); TOTAL PROTEIN 6.7 gm/dL (6.4-8.2)
[2022-01-19] MEDS ORDERED: FEROSUL325 M1 PO (06:44)
[2022-01-19 07:20] VITALS: BP 148/54
== END 2022-01-19 08:48 | disposition home or self-care (01) ==
LOC: ED 02:36 → EDHOLD 06:40 → 4E 07:25 → EDHOLD 07:25 → 4E 07:25 → ED 08:48
PROVIDERS: Emergency Medicine
DX: E11.649 Type 2 diabetes mellitus with hypoglycemia without coma (principal); R55 Syncope and collapse; I25.10 Atherosclerotic heart disease of native coronary artery without angina pectoris; I50.9 Heart failure, unspecified; E11.9 Type 2 diabetes mellitus without complications; E78.5 Hyperlipidemia, unspecified; I11.0 Hypertensive heart disease with heart failure; M19.90 Unspecified osteoarthritis, unspecified site; K21.9 Gastro-esophageal reflux disease without esophagitis; Z88.0 Allergy status to penicillin; Z88.1 Allergy status to other antibiotic agents; Z88.8 Allergy status to other drugs, medicaments and biological substances; Z79.899 Other long term (current) drug therapy; Z79.82 Long term (current) use of aspirin; Z87.891 Personal history of nicotine dependence

== ENCOUNTER 2022-10-19 10:25 | Emergency (ER) | payer OTHER ==
[~2022-10-19] VITALS: Ht 152.4 cm; Wt 65.8 kg
[~2022-10-19 10:25] MED LIST changes: +FEROSUL325 M1 PO; +OMNICEF300 MG PO; +VANCOMYCIN HCL125 MG PO; +XARE20MG PO
[2022-10-19 10:30] VITALS: BP 178/50
[2022-10-19 11:00] LABS: BILIRUBIN Negative (Negative); BLOOD 2+ (Negative); CLARITY Turbid (Clear); COLOR Yellow (Yellow); GLUCOSE Negative (Negative); KETONE Negative (Negative); LEUKO ESTERASE 3+ (Negative); NITRITE Positive (Negative); PH 5.5 (4.5-8.0); SPECIFIC GRAVITY 1.015 (1.001-1.030); UROBILINOGEN 0.2 E.U./dl (0.0-1.0)
[2022-10-19 11:09] LABS: BASO # 0.1 10*3/uL (0.0-0.1); BASO % 0.4 % (0.0-1.0); EOS # 0.3 10*3/uL (0.0-0.4); HEMATOCRIT 43.4 % (37.0-47.0); LYMPH # 1.7 10*3/uL (1.3-4.4); LYMPH % 12.8 % (27.0-41.0); MEAN CELL VOLUME 89.3 fl (81.0-99.0); MEAN CORPUSCULAR HGB 28.8 pg (27.0-31.0); MEAN CORPUSCULAR HGB CONC 32.3 g/dl (33.0-37.0); MEAN PLATELET VOLUME 10.8 fl (9.6-12.3); MONO # 0.8 10*3/uL (0.1-1.0); MONO % 6.2 % (3.0-9.0); NEUT # 10.5 10*3/uL (2.3-7.9); NEUT % 78.2 % (47.0-73.0); PLATELET COUNT AUTOMATED 212 10*3/uL (130-400); RED BLOOD COUNT 4.86 10*6/uL (4.10-5.10); RED CELL DISTRI WIDTH 14.5 % (0-14.5); WHITE BLOOD COUNT 13.4 10*3/uL (4.8-10.8)
[2022-10-19 11:20] LABS: BACTERIA 4+; WBC TNTC wbc/hpf (0-5)
[2022-10-19 11:21] LABS: INTERNATIONAL NORM RATIO 1.4 (2.0-3.5)
[2022-10-19 11:27] LABS: ALKALINE PHOSPHATASE 59 U/L (46-116); BUN 16 mg/dl (9-23); CHLORIDE 101 mmol/L (98-107); LIPASE 27 U/L (12-53); POTASSIUM 4.3 mmol/L (3.4-5.1); SGPT/ALT 8 U/L (10-49); TOTAL PROTEIN 7.1 gm/dL (6.0-8.0)
[2022-10-19] MEDS ORDERED: CEFUROXIME AXE500 MG PO (12:12)
== END 2022-10-19 12:16 | disposition home or self-care (01) ==
LOC: ED 10:25
PROVIDERS: Emergency Medicine
DX: N39.0 Urinary tract infection, site not specified (principal); Z88.0 Allergy status to penicillin; Z88.1 Allergy status to other antibiotic agents; Z88.5 Allergy status to narcotic agent; Z98.890 Other specified postprocedural states; Z87.891 Personal history of nicotine dependence

== ENCOUNTER 2023-03-10 09:49 | Inpatient (IN) | payer OTHER ==
[~2023-03-10] VITALS: Ht 152.4 cm; Wt 62.7 kg
[~2023-03-10 09:49] MED LIST changes: +CEFUROXIME AXE500 MG PO
[2023-03-10 10:06] VITALS: BP 106/73
[2023-03-10 10:33] LABS: BASO # 0.1 10*3/uL (0.0-0.1); BASO % 0.5 % (0.0-1.0); EOS # 0.3 10*3/uL (0.0-0.4); EOS % 3.3 % (1.0-4.0); HEMATOCRIT 45.2 % (37.0-47.0); LYMPH # 2.2 10*3/uL (1.3-4.4); LYMPH % 23.1 % (27.0-41.0); MEAN CELL VOLUME 94.4 fl (81.0-99.0); MEAN CORPUSCULAR HGB 31.1 pg (27.0-31.0); MEAN PLATELET VOLUME 10.8 fl (9.6-12.3); MONO # 0.7 10*3/uL (0.1-1.0); MONO % 7.7 % (3.0-9.0); NEUT # 6.2 10*3/uL (2.3-7.9); NEUT % 64.8 % (47.0-73.0); PLATELET COUNT AUTOMATED 180 10*3/uL (130-400); RED BLOOD COUNT 4.79 10*6/uL (4.10-5.10); RED CELL DISTRI WIDTH 13.2 % (0-14.5); WHITE BLOOD COUNT 9.6 10*3/uL (4.8-10.8)
[2023-03-10 10:55] LABS: ALKALINE PHOSPHATASE 69 U/L (46-116); BUN 18 mg/dl (9-23); CHLORIDE 107 mmol/L (98-107); POTASSIUM 4.1 mmol/L (3.4-5.1); TOTAL PROTEIN 6.5 gm/dL (6.0-8.0)
[2023-03-10 10:57] LABS: SGPT/ALT < 7 U/L (10-49)
[2023-03-10 11:28] LABS: BILIRUBIN Negative (Negative); BLOOD 1+ (Negative); CLARITY Cloudy (Clear); COLOR Yellow (Yellow); GLUCOSE Negative (Negative); KETONE Negative (Negative); LEUKO ESTERASE 1+ (Negative); NITRITE Negative (Negative); PH 5.5 (4.5-8.0); SPECIFIC GRAVITY 1.015 (1.001-1.030)
[2023-03-10 11:34] VITALS: BP 130/87
[2023-03-10 11:46] LABS: BACTERIA 2+
[2023-03-10 13:36] VITALS: BP 98/53
[2023-03-10 14:15] VITALS: BP 95/68
[2023-03-10 16:00] VITALS: BP 98/53
[2023-03-10 20:00] VITALS: BP 85/60
[2023-03-11] VITALS: BP 90/60
[2023-03-11 06:07] LABS: BASO % 0.1 % (0.0-1.0); HEMATOCRIT 43.3 % (37.0-47.0); LYMPH # 1.1 10*3/uL (1.3-4.4); LYMPH % 9.2 % (27.0-41.0); MEAN CELL VOLUME 92.3 fl (81.0-99.0); MEAN CORPUSCULAR HGB 30.9 pg (27.0-31.0); MEAN CORPUSCULAR HGB CONC 33.5 g/dl (33.0-37.0); MEAN PLATELET VOLUME 11.1 fl (9.6-12.3); MONO # 0.5 10*3/uL (0.1-1.0); MONO % 3.8 % (3.0-9.0); NEUT # 10.2 10*3/uL (2.3-7.9); NEUT % 86.3 % (47.0-73.0); PLATELET COUNT AUTOMATED 202 10*3/uL (130-400); RED BLOOD COUNT 4.69 10*6/uL (4.10-5.10); RED CELL DISTRI WIDTH 13.3 % (0-14.5); WHITE BLOOD COUNT 11.9 10*3/uL (4.8-10.8)
[2023-03-11 06:39] LABS: ACT PARTIAL THROMBO TIME 32.2 SECONDS (20.0-32.1); ALKALINE PHOSPHATASE 53 U/L (46-116); BUN 20 mg/dl (9-23); CHLORIDE 100 mmol/L (98-107); CHOLESTEROL 161 mg/dL (<200); INTERNATIONAL NORM RATIO 1.3 (2.0-3.5); LDL CHOLESTEROL 83 mg/dL (9-159); TOTAL PROTEIN 6.2 gm/dL (6.0-8.0); TRIGLYCERIDES 131 mg/dl (<150)
[2023-03-11 06:41] LABS: SGPT/ALT < 7 U/L (10-49)
[2023-03-11 08:00] VITALS: BP 157/55
[2023-03-11 12:00] VITALS: BP 131/45
[2023-03-11 16:00] VITALS: BP 141/54
[2023-03-11 20:00] VITALS: BP 142/66
[2023-03-12] VITALS: BP 151/56
[2023-03-12 06:37] LABS: BASO % 0.4 % (0.0-1.0); EOS # 0.1 10*3/uL (0.0-0.4); EOS % 1.3 % (1.0-4.0); HEMATOCRIT 41.8 % (37.0-47.0); LYMPH % 30.6 % (27.0-41.0); MEAN CELL VOLUME 93.9 fl (81.0-99.0); MEAN CORPUSCULAR HGB 30.8 pg (27.0-31.0); MEAN CORPUSCULAR HGB CONC 32.8 g/dl (33.0-37.0); MEAN PLATELET VOLUME 10.9 fl (9.6-12.3); MONO # 0.8 10*3/uL (0.1-1.0); NEUT # 5.9 10*3/uL (2.3-7.9); NEUT % 59.2 % (47.0-73.0); PLATELET COUNT AUTOMATED 178 10*3/uL (130-400); RED BLOOD COUNT 4.45 10*6/uL (4.10-5.10); RED CELL DISTRI WIDTH 13.2 % (0-14.5); WHITE BLOOD COUNT 9.9 10*3/uL (4.8-10.8)
[2023-03-12 06:58] LABS: BUN 24 mg/dl (9-23); CHLORIDE 101 mmol/L (98-107); POTASSIUM 4.3 mmol/L (3.4-5.1)
[2023-03-12 08:00] VITALS: BP 134/72
[2023-03-12] MEDS ORDERED: FUROSEMIDE20 M1 PO (11:30)
[2023-03-12] MEDS ORDERED: LIPITOR80 MG PO (11:30)
[2023-03-12] MEDS ORDERED: METOPROLOL SUCC25 M2 PO (11:30)
[2023-03-12] MEDS ORDERED: ALDACTONE25 MG PO (11:31)
[2023-03-12 12:00] VITALS: BP 126/59
[2023-03-12] MEDS ORDERED: VIBRAMYCIN HYC100 MG PO (13:09)
== END 2023-03-12 14:00 | disposition home or self-care (01) | DRG 291 ==
LOC: ED 09:49 → EDHOLD 13:02 → 4E 13:02
PROVIDERS: Internal Medicine; Student in an Organized Health Care Education/Training Program; ADMIT Family Medicine; ATTEND Family Medicine
DX: I11.0 Hypertensive heart disease with heart failure (principal); I50.33 Acute on chronic diastolic (congestive) heart failure; J81.0 Acute pulmonary edema; J96.01 Acute respiratory failure with hypoxia; N39.0 Urinary tract infection, site not specified; I48.0 Paroxysmal atrial fibrillation; I34.0 Nonrheumatic mitral (valve) insufficiency; E83.42 Hypomagnesemia; I25.10 Atherosclerotic heart disease of native coronary artery without angina pectoris; E11.59 Type 2 diabetes mellitus with other circulatory complications; E78.5 Hyperlipidemia, unspecified; R82.71 Bacteriuria; R31.9 Hematuria, unspecified; Z88.0 Allergy status to penicillin; Z88.1 Allergy status to other antibiotic agents; Z88.8 Allergy status to other drugs, medicaments and biological substances; Z79.4 Long term (current) use of insulin; Z88.5 Allergy status to narcotic agent; Z79.82 Long term (current) use of aspirin; Z79.1 Long term (current) use of non-steroidal anti-inflammatories (NSAID); Z79.899 Other long term (current) drug therapy; Z79.84 Long term (current) use of oral hypoglycemic drugs; Z95.5 Presence of coronary angioplasty implant and graft; Z82.49 Family history of ischemic heart disease and other diseases of the circulatory system; Z83.3 Family history of diabetes mellitus; Z82.3 Family history of stroke

== ENCOUNTER 2023-04-20 18:47 | Emergency (ER) | payer OTHER ==
[~2023-04-20] VITALS: Ht 152.4 cm; Wt 59.0 kg
[~2023-04-20 18:47] MED LIST changes: +ALDACTONE25 MG PO; +FUROSEMIDE20 M1 PO; +LIPITOR80 MG PO; +METOPROLOL SUCC25 M2 PO; +VIBRAMYCIN HYC100 MG PO
[2023-04-20 19:01] VITALS: BP 116/55
== END 2023-04-20 20:25 | disposition home or self-care (01) ==
LOC: ED 18:47
DX: T82.847A Pain due to cardiac prosthetic devices, implants and grafts, initial encounter (principal); I10 Essential (primary) hypertension; M19.90 Unspecified osteoarthritis, unspecified site; K21.9 Gastro-esophageal reflux disease without esophagitis; E11.9 Type 2 diabetes mellitus without complications; I25.10 Atherosclerotic heart disease of native coronary artery without angina pectoris; J44.9 Chronic obstructive pulmonary disease, unspecified; E78.00 Pure hypercholesterolemia, unspecified; I25.2 Old myocardial infarction; Z88.0 Allergy status to penicillin; Z88.1 Allergy status to other antibiotic agents; Z88.5 Allergy status to narcotic agent; Z98.890 Other specified postprocedural states; Z87.891 Personal history of nicotine dependence; Y83.8 Other surgical procedures as the cause of abnormal reaction of the patient, or of later complication, without mention of misadventure at the time of the procedure; Y92.89 Other specified places as the place of occurrence of the external cause

== ENCOUNTER → 2023-04-22 | Outpatient (CLI) | payer OTHER | END | disposition home or self-care (01) | LOC: US 08:46 | PROVIDERS: ATTEND Emergency Medicine | DX: M79.604 Pain in right leg (principal) ==

== ENCOUNTER 2023-07-28 17:56 | Emergency (ER) | payer OTHER ==
[~2023-07-28] VITALS: Ht 149.8 cm; Wt 58.5 kg
[2023-07-28 18:14] VITALS: BP 130/89
== END 2023-07-28 19:18 | disposition home or self-care (01) ==
LOC: ED 17:56
DX: M25.562 Pain in left knee (principal); M25.572 Pain in left ankle and joints of left foot; G89.29 Other chronic pain; I10 Essential (primary) hypertension; M19.90 Unspecified osteoarthritis, unspecified site; K21.9 Gastro-esophageal reflux disease without esophagitis; E11.9 Type 2 diabetes mellitus without complications; I25.10 Atherosclerotic heart disease of native coronary artery without angina pectoris; J44.9 Chronic obstructive pulmonary disease, unspecified; E78.00 Pure hypercholesterolemia, unspecified; I25.2 Old myocardial infarction; Z88.0 Allergy status to penicillin; Z88.1 Allergy status to other antibiotic agents; Z88.5 Allergy status to narcotic agent; Z95.5 Presence of coronary angioplasty implant and graft; Z98.890 Other specified postprocedural states; Z87.891 Personal history of nicotine dependence

== ENCOUNTER → 2023-08-12 | Outpatient (CLI) | payer OTHER | END | disposition home or self-care (01) | LOC: CARD 07-29 11:30 | PROVIDERS: ATTEND Internal Medicine Cardiovascular Disease | DX: I08.0 Rheumatic disorders of both mitral and aortic valves (principal); I25.119 Atherosclerotic heart disease of native coronary artery with unspecified angina pectoris; I10 Essential (primary) hypertension; R94.30 Abnormal result of cardiovascular function study, unspecified ==

== ENCOUNTER 2023-09-28 16:03 | Emergency (ER) | payer OTHER ==
[~2023-09-28] VITALS: Wt 59.0 kg
[2023-09-28] MEDS ORDERED: [UNRECOGNIZED DRUG - REMARK] (16:22)
[2023-09-28 16:28] LABS: BASO # 0.1 10*3/uL (0.0-0.1); BASO % 0.4 % (0.0-1.0); EOS # 0.1 10*3/uL (0.0-0.4); EOS % 1.1 % (1.0-4.0); HEMATOCRIT 38.4 % (37.0-47.0); LYMPH # 2.7 10*3/uL (1.3-4.4); LYMPH % 20.6 % (27.0-41.0); MEAN CORPUSCULAR HGB 30.3 pg (27.0-31.0); MEAN CORPUSCULAR HGB CONC 33.3 g/dl (33.0-37.0); MEAN PLATELET VOLUME 10.1 fl (9.6-12.3); MONO # 0.8 10*3/uL (0.1-1.0); MONO % 6.1 % (3.0-9.0); NEUT # 9.2 10*3/uL (2.3-7.9); NEUT % 69.8 % (47.0-73.0); PLATELET COUNT AUTOMATED 264 10*3/uL (130-400); RED BLOOD COUNT 4.22 10*6/uL (4.10-5.10); RED CELL DISTRI WIDTH 13.1 % (0-14.5); WHITE BLOOD COUNT 13.2 10*3/uL (4.8-10.8)
[2023-09-28 16:42] LABS: ACT PARTIAL THROMBO TIME 22.7 SECONDS (20.0-32.1)
[2023-09-28 16:50] LABS: ALKALINE PHOSPHATASE 75 U/L (46-116); BUN 23 mg/dl (9-23); CHLORIDE 103 mmol/L (98-107); TOTAL PROTEIN 6.7 gm/dL (6.0-8.0)
[2023-09-28 17:01] LABS: SGPT/ALT < 7 U/L (5-49)
[2023-09-28 17:26] VITALS: BP 142/72
[2023-09-28] MEDS ORDERED: PERCOCET 5-3251 EACH PO (18:26)
== END 2023-09-28 19:12 | disposition home or self-care (01) ==
LOC: ED 16:03
PROVIDERS: Emergency Medicine
DX: S42.252A Displaced fracture of greater tuberosity of left humerus, initial encounter for closed fracture (principal); M25.552 Pain in left hip; I25.10 Atherosclerotic heart disease of native coronary artery without angina pectoris; E78.5 Hyperlipidemia, unspecified; I48.91 Unspecified atrial fibrillation; I11.0 Hypertensive heart disease with heart failure; I50.9 Heart failure, unspecified; E11.9 Type 2 diabetes mellitus without complications; Z88.0 Allergy status to penicillin; Z88.1 Allergy status to other antibiotic agents; Z88.5 Allergy status to narcotic agent; Z79.899 Other long term (current) drug therapy; Z79.4 Long term (current) use of insulin; Z95.5 Presence of coronary angioplasty implant and graft; Z98.890 Other specified postprocedural states; Z87.891 Personal history of nicotine dependence; W18.09XA Striking against other object with subsequent fall, initial encounter; Y93.89 Activity, other specified; Y92.89 Other specified places as the place of occurrence of the external cause; Y99.8 Other external cause status

== ENCOUNTER → 2023-10-31 | Outpatient (CLI) | payer MEDICARE ==
[~2023-10-31] MED LIST changes: +PERCOCET 5-3251 EACH PO; +[UNRECOGNIZED DRUG - REMARK]
== END | disposition home or self-care (01) ==
LOC: MRI 10-24 14:00
PROVIDERS: ATTEND Orthopaedic Surgery
DX: S72.002A Fracture of unspecified part of neck of left femur, initial encounter for closed fracture (principal); M25.552 Pain in left hip; X58.XXXA Exposure to other specified factors, initial encounter; Y93.89 Activity, other specified; Y92.89 Other specified places as the place of occurrence of the external cause; Y99.8 Other external cause status

== ENCOUNTER → 2024-09-17 | Outpatient (CLI) | payer OTHER ==
[~2024-09-17] MED LIST changes: +PREGABALIN150 MG PO; +TOPROL XL50 M1 PO; +TRAMADOL HCL25 MG PO
== END | disposition home or self-care (01) ==
LOC: US 14:10
PROVIDERS: ATTEND Nurse Practitioner Family
DX: K80.20 Calculus of gallbladder without cholecystitis without obstruction (principal); N18.4 Chronic kidney disease, stage 4 (severe)

== ENCOUNTER 2024-10-02 20:32 | Inpatient (IN) | payer OTHER ==
[~2024-10-02] VITALS: Ht 152.4 cm; Wt 64.1 kg
[2024-10-02 20:54] VITALS: BP 113/72
[2024-10-02 21:20] LABS: BILIRUBIN Negative (Negative); BLOOD Trace-Lysed (Negative); CLARITY Cloudy (Clear); COLOR Yellow (Yellow); GLUCOSE 1+ (Negative); KETONE Trace (Negative); LEUKO ESTERASE 2+ (Negative); NITRITE Negative (Negative); PH 5.5 (4.5-8.0); UROBILINOGEN 0.2 E.U./dl (0.0-1.0)
[2024-10-02 21:32] LABS: BASO # 0.1 10*3/uL (0.0-0.1); BASO % 0.7 % (0.0-1.0); EOS # 0.2 10*3/uL (0.0-0.4); EOS % 1.6 % (1.0-4.0); HEMATOCRIT 41.4 % (37.0-47.0); MEAN CELL VOLUME 86.3 fl (81.0-99.0); MEAN CORPUSCULAR HGB 28.8 pg (27.0-31.0); MEAN CORPUSCULAR HGB CONC 33.3 g/dl (33.0-37.0); MEAN PLATELET VOLUME 11.4 fl (9.6-12.3); MONO # 0.9 10*3/uL (0.1-1.0); MONO % 9.1 % (3.0-9.0); NEUT # 6.5 10*3/uL (2.3-7.9); NEUT % 67.9 % (47.0-73.0); PLATELET COUNT AUTOMATED 232 10*3/uL (130-400); RED CELL DISTRI WIDTH 13.3 % (0-14.5); WHITE BLOOD COUNT 9.5 10*3/uL (4.8-10.8)
[2024-10-02 21:34] LABS: BACTERIA 2+; WBC 31-40 wbc/hpf (0-5)
[2024-10-02] MEDS ORDERED: SODIUM CHLORIDE 0.9% 1,000 ML IV ONE (21:40)
[2024-10-02 21:51] LABS: POTASSIUM 3.9 mmol/L (3.4-5.1)
[2024-10-02] MEDS ORDERED: ACETAMINOPHEN 325 MG TAB PO PRN (22:30)
[2024-10-02] MEDS ORDERED: ACETAMINOPHEN 650 MG SUPP R PRN (22:30)
[2024-10-02] MEDS ORDERED: Ondansetron Hydrochloride 4 MG/2 ML VIAL IV PRN (22:30)
[2024-10-02] MEDS ORDERED: BISACODYL 10 MG SUPP R PRN (22:30)
[2024-10-02] MEDS ORDERED: TEMAZEPAM 15 MG CAP PO PRN (22:30)
[2024-10-02] MEDS ORDERED: Magnesium Hydroxide 30 ML UDC PO PRN (22:30)
[2024-10-02] MEDS ORDERED: BISACODYL 5 MG TAB PO PRN (22:30)
[2024-10-02] MEDS ORDERED: MAGNESIUM SULFATE 50 ML IV ONE (22:40)
[2024-10-02] MEDS ORDERED: DEXTROSE 10 % IN WATER 250 ML IV PRN (22:40)
[2024-10-02] MEDS ORDERED: SODIUM CHLORIDE 0.9% 1,000 ML IV SCH (22:50)
[2024-10-02] MEDS ORDERED: Ceftriaxone Sodium 1 GM in SYRINGE INFUSION 10 ML IV SCH (23:00)
[2024-10-02 23:24] VITALS: BP 116/72
[2024-10-03 05:33] LABS: ALKALINE PHOSPHATASE 55 U/L (46-116); BUN 45 mg/dl (9-23); CHLORIDE 99 mmol/L (98-107); CHOLESTEROL 202 mg/dL (<200); FREE T4 1.44 ng/dl (0.89-1.76); LDL CHOLESTEROL 123 mg/dL (9-159); POTASSIUM 3.9 mmol/L (3.4-5.1); TOTAL PROTEIN 6.3 gm/dL (6.0-8.0); TRIGLYCERIDES 180 mg/dl (<150)
[2024-10-03 06:15] LABS: BASO # 0.1 10*3/uL (0.0-0.1); BASO % 0.6 % (0.0-1.0); EOS # 0.2 10*3/uL (0.0-0.4); EOS % 2.2 % (1.0-4.0); HEMATOCRIT 37.8 % (37.0-47.0); MEAN CELL VOLUME 86.7 fl (81.0-99.0); MEAN CORPUSCULAR HGB 28.7 pg (27.0-31.0); MEAN CORPUSCULAR HGB CONC 33.1 g/dl (33.0-37.0); MEAN PLATELET VOLUME 11.8 fl (9.6-12.3); MONO # 0.6 10*3/uL (0.1-1.0); MONO % 7.5 % (3.0-9.0); NEUT # 4.7 10*3/uL (2.3-7.9); NEUT % 56.8 % (47.0-73.0); PLATELET COUNT AUTOMATED 185 10*3/uL (130-400); RED BLOOD COUNT 4.36 10*6/uL (4.10-5.10); RED CELL DISTRI WIDTH 13.6 % (0-14.5); WHITE BLOOD COUNT 8.2 10*3/uL (4.8-10.8)
[2024-10-03 06:24] LABS: SGPT/ALT < 7 U/L (5-49)
[2024-10-03 06:37] LABS: ACT PARTIAL THROMBO TIME 27.3 SECONDS (20.0-32.1)
[2024-10-03] MEDS ORDERED: AMLODIPINE BESYL5 MG PO (06:52)
[2024-10-03] MEDS ORDERED: HYDROCHLOROTHIA25 M1 PO (06:53)
[2024-10-03] MEDS ORDERED: INSULIN LISPRO 1 UNIT/0.01 ML SQ SCH (07:30)
[2024-10-03 08:00] VITALS: BP 155/68
[2024-10-03] MEDS ORDERED: Enoxaparin Sodium 40 MG/0.4 ML SYR SC SCH (10:00)
[2024-10-03] MEDS ORDERED: PANTOPRAZOLE SO40 MG PO (11:49)
[2024-10-03] MEDS ORDERED: MAGOX 400400 MG PO (11:50)
[2024-10-03] MEDS ORDERED: FENOFIBRATE145 M1 PO (11:51)
[2024-10-03 12:00] VITALS: BP 163/68
[2024-10-03 13:59] LABS: VITAMIN D, 25-HYDROXY 39.9 ng/mL (30-100)
[2024-10-03] MEDS ORDERED: ATORVASTATIN CALCIUM 80 MG TAB PO SCH (14:49)
[2024-10-03] MEDS ORDERED: amLODIPine besylate 5 MG TAB PO SCH (14:49)
[2024-10-03] MEDS ORDERED: FENOFIBRATE 145 MG TAB PO SCH (14:49)
[2024-10-03] MEDS ORDERED: Clopidogrel Hydrogen Sulfate 75 MG TAB PO SCH (14:49)
[2024-10-03] MEDS ORDERED: HYDROCHLOROTHIAZIDE 25 MG TAB PO SCH (14:49)
[2024-10-03] MEDS ORDERED: Pantoprazole Sodium 40 MG TAB PO SCH (14:50)
[2024-10-03] MEDS ORDERED: Sertraline Hydrochloride 50 MG TAB PO SCH (14:50)
[2024-10-03 16:00] VITALS: BP 174/68
[2024-10-03] MEDS ORDERED: RIVAROXABAN 20 MG TAB PO SCH (18:00)
[2024-10-03] MEDS ORDERED: SODIUM CHLORIDE 0.9% 1,000 ML IV ONE (18:25)
[2024-10-03 20:00] VITALS: BP 105/75
[2024-10-03] MEDS ORDERED: ISOSORBIDE MONONITRATE 60 MG TAB PO SCH (22:00)
[2024-10-03] MEDS ORDERED: METOPROLOL SUCCINATE XR 50 MG TAB PO SCH (22:00)
[2024-10-03] MEDS ORDERED: Insulin Glargine, Recombinan 1 UNIT/0.01 ML SC SCH (22:00)
[2024-10-04] VITALS: BP 118/88
[2024-10-04 02:51] LABS: BASO # 0.1 10*3/uL (0.0-0.1); BASO % 0.9 % (0.0-1.0); EOS # 0.3 10*3/uL (0.0-0.4); EOS % 4.5 % (1.0-4.0); HEMATOCRIT 41.1 % (37.0-47.0); MEAN CORPUSCULAR HGB 29.1 pg (27.0-31.0); MEAN CORPUSCULAR HGB CONC 33.1 g/dl (33.0-37.0); MEAN PLATELET VOLUME 11.5 fl (9.6-12.3); MONO # 0.6 10*3/uL (0.1-1.0); MONO % 8.5 % (3.0-9.0); NEUT # 3.3 10*3/uL (2.3-7.9); NEUT % 47.6 % (47.0-73.0); PLATELET COUNT AUTOMATED 201 10*3/uL (130-400); RED BLOOD COUNT 4.67 10*6/uL (4.10-5.10); RED CELL DISTRI WIDTH 13.6 % (0-14.5)
[2024-10-04 03:06] LABS: POTASSIUM 4.5 mmol/L (3.4-5.1)
[2024-10-04 08:00] VITALS: BP 189/97
[2024-10-04 08:05] VITALS: BP 170/58
[2024-10-04] MEDS ORDERED: FERROUS SULFATE 325 MG TAB PO SCH (10:00)
[2024-10-04 12:00] VITALS: BP 152/64; BP 180/70
[2024-10-04 14:33] VITALS: BP 152/60
[2024-10-05] MEDS ORDERED: FERROUS SULFATE 325 MG TAB PO SCH (10:00)
== END 2024-10-04 14:40 | disposition home or self-care (01) | DRG 640 ==
LOC: ED 20:32 → EDHOLD 22:08 → 4E 22:08 → EDHOLD 10-03 00:17 → 4E 10-03 00:31
PROVIDERS: Nurse Practitioner Family; Student in an Organized Health Care Education/Training Program; ADMIT Internal Medicine; ATTEND Internal Medicine
DX: E86.0 Dehydration (principal); N17.0 Acute kidney failure with tubular necrosis; N30.01 Acute cystitis with hematuria; I50.32 Chronic diastolic (congestive) heart failure; I11.0 Hypertensive heart disease with heart failure; M25.552 Pain in left hip; I25.10 Atherosclerotic heart disease of native coronary artery without angina pectoris; K21.9 Gastro-esophageal reflux disease without esophagitis; E78.5 Hyperlipidemia, unspecified; E11.40 Type 2 diabetes mellitus with diabetic neuropathy, unspecified; E11.65 Type 2 diabetes mellitus with hyperglycemia; I25.2 Old myocardial infarction; Z95.5 Presence of coronary angioplasty implant and graft; Z87.891 Personal history of nicotine dependence; Z83.3 Family history of diabetes mellitus; Z82.49 Family history of ischemic heart disease and other diseases of the circulatory system; Z82.3 Family history of stroke; Z88.0 Allergy status to penicillin; Z88.1 Allergy status to other antibiotic agents; Z88.5 Allergy status to narcotic agent; Z79.899 Other long term (current) drug therapy; Z79.4 Long term (current) use of insulin

== ENCOUNTER → 2024-11-03 | Day surgery (SDC) | payer OTHER ==
[~2024-11-03] VITALS: Ht 152.4 cm; Wt 61.2 kg
[~2024-11-03] MED LIST changes: +AMLODIPINE BESYL5 MG PO; +FENOFIBRATE145 M1 PO; +HYDROCHLOROTHIA25 M1 PO; +MAGOX 400400 MG PO; +PANTOPRAZOLE SO40 MG PO
== END | disposition home or self-care (01) ==
LOC: SDC 10-30 08:00
PROVIDERS: ATTEND Orthopaedic Surgery
DX: M65.331 Trigger finger, right middle finger (principal); Z53.8 Procedure and treatment not carried out for other reasons; M19.90 Unspecified osteoarthritis, unspecified site; I10 Essential (primary) hypertension; K21.9 Gastro-esophageal reflux disease without esophagitis; E11.9 Type 2 diabetes mellitus without complications; I25.10 Atherosclerotic heart disease of native coronary artery without angina pectoris; J44.9 Chronic obstructive pulmonary disease, unspecified; E78.00 Pure hypercholesterolemia, unspecified; I25.2 Old myocardial infarction; Z95.818 Presence of other cardiac implants and grafts; Z87.440 Personal history of urinary (tract) infections; Z98.890 Other specified postprocedural states; Z79.899 Other long term (current) drug therapy; Z83.3 Family history of diabetes mellitus; Z82.49 Family history of ischemic heart disease and other diseases of the circulatory system

== ENCOUNTER 2025-01-16 09:35 | Emergency (ER) | payer OTHER ==
[~2025-01-16] VITALS: Ht 152.4 cm; Wt 60.5 kg
[~2025-01-16 09:35] MED LIST changes: +ASPIRIN ADULT L81 M2 PO; +ATORVASTATIN CA40 M1 PO; +FUROSEMIDE40 MG PO; +INSULIN LI100 UNIT/1 SQ; +JARDIANCE10 MG PO; +LANTUS100 UNIT/1 SC; +LOSARTAN POTASS50 M1 PO; +METRONIDAZOLE500 M1 PO; +Magnesium Oxid400 MG PO; +XARE15TA PO
[2025-01-16] MEDS ORDERED: FUROSEMIDE 40 MG TAB PO ONE (10:00)
[2025-01-16] MEDS ORDERED: SPIRONOLACTONE 25 MG TAB PO ONE (10:00)
[2025-01-16 10:22] LABS: BASO # 0.1 10*3/uL (0.0-0.1); BASO % 0.7 % (0.0-1.0); EOS # 0.2 10*3/uL (0.0-0.4); EOS % 2.2 % (1.0-4.0); HEMATOCRIT 36.4 % (37.0-47.0); MEAN CELL VOLUME 91.5 fl (81.0-99.0); MEAN CORPUSCULAR HGB 28.9 pg (27.0-31.0); MEAN CORPUSCULAR HGB CONC 31.6 g/dl (33.0-37.0); MEAN PLATELET VOLUME 10.2 fl (9.6-12.3); MONO # 0.5 10*3/uL (0.1-1.0); MONO % 6.9 % (3.0-9.0); NEUT # 5.8 10*3/uL (2.3-7.9); NEUT % 75.9 % (47.0-73.0); PLATELET COUNT AUTOMATED 271 10*3/uL (130-400); RED BLOOD COUNT 3.98 10*6/uL (4.10-5.10); WHITE BLOOD COUNT 7.6 10*3/uL (4.8-10.8)
[2025-01-16 10:44] LABS: ALKALINE PHOSPHATASE 68 U/L (46-116); BUN 25 mg/dl (9-23); CHLORIDE 105 mmol/L (98-107); TOTAL PROTEIN 6.9 gm/dL (6.0-8.0)
[2025-01-16 10:45] LABS: SGPT/ALT < 7 U/L (5-49)
[2025-01-16] MEDS ORDERED: METOPROLOL SUCCINATE XR 25 MG TAB PO ONE (10:45)
[2025-01-16] MEDS ORDERED: Metoprolol Tartrate 5 MG/5 ML VIAL IV ONE ×2 (12:20→13:00)
[2025-01-16 13:55] VITALS: BP 131/57
== END 2025-01-16 17:03 | disposition home or self-care (01) ==
LOC: ED 09:35
PROVIDERS: Emergency Medicine
DX: I48.20 Chronic atrial fibrillation, unspecified (principal); E87.70 Fluid overload, unspecified; R06.02 Shortness of breath; R00.0 Tachycardia, unspecified; E11.22 Type 2 diabetes mellitus with diabetic chronic kidney disease; I13.0 Hypertensive heart and chronic kidney disease with heart failure and stage 1 through stage 4 chronic kidney disease, or unspecified chronic kidney disease; N18.9 Chronic kidney disease, unspecified; I50.9 Heart failure, unspecified; I25.2 Old myocardial infarction; I48.91 Unspecified atrial fibrillation; I25.10 Atherosclerotic heart disease of native coronary artery without angina pectoris; K21.9 Gastro-esophageal reflux disease without esophagitis; E78.5 Hyperlipidemia, unspecified; Z88.0 Allergy status to penicillin; Z88.1 Allergy status to other antibiotic agents; Z88.5 Allergy status to narcotic agent; Z79.899 Other long term (current) drug therapy; Z79.82 Long term (current) use of aspirin; Z79.4 Long term (current) use of insulin; Z95.5 Presence of coronary angioplasty implant and graft; Z98.890 Other specified postprocedural states; Z87.891 Personal history of nicotine dependence

== ENCOUNTER 2025-03-16 19:04 | Emergency (ER) | payer OTHER ==
[~2025-03-16] VITALS: Ht 149.8 cm; Wt 55.8 kg
[~2025-03-16 19:04] MED LIST changes: +ADMELOG100 UNIT/1 SQ; +AMLODIPINE BES2.5 MG PO; +ENOXAPARIN80 MG/0.2 SC; +ENTRESTO 24 MG1 EACH PO; +GLIPIZIDE10 M1 PO; +IRON325 M1 PO; +Imdur SA60 MG PO; +MAGNESIUM OXID400 MG PO; +METOPROLOL TART50 M1 PO; +PROTONIX40 MG PO; +RANOLAZINE ER1000 MG PO; +ZITHROMAX250 MG PO
[2025-03-16 19:54] LABS: BASO # 0.0 10*3/uL (0.0-0.1); BASO % 0.5 % (0.0-1.0); EOS # 0.2 10*3/uL (0.0-0.4); EOS % 2.6 % (1.0-4.0); MEAN CELL VOLUME 89.0 fl (81.0-99.0); MEAN CORPUSCULAR HGB 27.3 pg (27.0-31.0); MEAN PLATELET VOLUME 10.3 fl (9.6-12.3); MONO # 0.5 10*3/uL (0.1-1.0); MONO % 8.6 % (3.0-9.0); NEUT # 3.9 10*3/uL (2.3-7.9); NEUT % 66.8 % (47.0-73.0); NUCLEATED RED BLOOD CELL 0.0 % (0.0-0.0); NUCLEATED RED BLOOD CELL 0.0 10*3/uL (0.0-0.0); PLATELET COUNT AUTOMATED 226 10*3/uL (130-400); RED CELL DISTRI WIDTH 16.4 % (0-14.5)
[2025-03-16 20:24] LABS: BUN 25.0 mg/dl (9-23)
[2025-03-16] MEDS ORDERED: BUMETANIDE 1 MG/4 ML VIAL IV ONE ×2 (20:30→21:45)
[2025-03-16 23:00] VITALS: BP 102/63
[2025-03-21] MEDS ORDERED: NORVASC2.5 MG PO (21:01)
[2025-03-21] MEDS ORDERED: POTASSIUM CHLO PO (21:02)
== END 2025-03-16 23:31 | disposition home or self-care (01) ==
LOC: ED 19:04
PROVIDERS: Internal Medicine
DX: I13.0 Hypertensive heart and chronic kidney disease with heart failure and stage 1 through stage 4 chronic kidney disease, or unspecified chronic kidney disease (principal); N18.9 Chronic kidney disease, unspecified; I50.23 Acute on chronic systolic (congestive) heart failure; N17.9 Acute kidney failure, unspecified; J90 Pleural effusion, not elsewhere classified; Z88.0 Allergy status to penicillin; Z88.1 Allergy status to other antibiotic agents; Z88.5 Allergy status to narcotic agent; Z79.899 Other long term (current) drug therapy; Z79.82 Long term (current) use of aspirin; Z79.84 Long term (current) use of oral hypoglycemic drugs; Z79.4 Long term (current) use of insulin; Z95.5 Presence of coronary angioplasty implant and graft; Z98.890 Other specified postprocedural states; Z87.891 Personal history of nicotine dependence

== ENCOUNTER 2025-05-08 19:53 | Inpatient (IN) | payer OTHER ==
[~2025-05-08] VITALS: Ht 149.8 cm; Wt 53.1 kg
[~2025-05-08 19:53] MED LIST changes: +HUMALOG100 UNIT/1 SC; +Ipratropium Brom3 ML NEB; +LASIX40 MG PO; +NORVASC2.5 MG PO; +POTASSIUM CHLO PO; +VIBRA-TAB100 MG PO
[2025-05-08] MEDS ORDERED: SODIUM CHLORIDE 0.9% 500 ML IV ONE (20:00)
[2025-05-08] MEDS ORDERED: Metoclopramide Hydrochloride 10 MG/2 ML VIAL IV ONE (20:00)
[2025-05-08] MEDS ORDERED: diphenhydrAMINE hydrochloride 50 MG/ML VIAL IV ONE (20:00)
[2025-05-08 20:03] VITALS: BP 123/55
[2025-05-08 20:26] LABS: ACT PARTIAL THROMBO TIME 25.8 SECONDS (20.0-32.1)
[2025-05-08 20:29] LABS: BASO # 0.0 10*3/uL (0.0-0.1); BASO % 0.3 % (0.0-1.0); EOS # 0.0 10*3/uL (0.0-0.4); EOS % 0.2 % (1.0-4.0); MEAN CELL VOLUME 88.0 fl (81.0-99.0); MEAN CORPUSCULAR HGB 27.1 pg (27.0-31.0); MEAN PLATELET VOLUME 10.8 fl (9.6-12.3); MONO # 0.9 10*3/uL (0.1-1.0); MONO % 6.1 % (3.0-9.0); NEUT # 12.4 10*3/uL (2.3-7.9); NEUT % 80.2 % (47.0-73.0); NUCLEATED RED BLOOD CELL 0.0 % (0.0-0.0); NUCLEATED RED BLOOD CELL 0.0 10*3/uL (0.0-0.0); PLATELET COUNT AUTOMATED 247 10*3/uL (130-400); RED CELL DISTRI WIDTH 17.8 % (0-14.5)
[2025-05-08 20:36] LABS: BUN 32 mg/dl (9-23)
[2025-05-08 20:44] LABS: SGPT/ALT < 7 U/L (5-49)
[2025-05-08] MEDS ORDERED: SODIUM CHLORIDE 0.9% 1,000 ML IV SCH (20:50)
[2025-05-08] MEDS ORDERED: MAGNESIUM SULFATE 100 ML IV ONE (20:50)
[2025-05-08] MEDS ORDERED: ASPIRIN 325 MG TAB PO ONE (20:50)
[2025-05-08] MEDS ORDERED: POTASSIUM CHLORIDE IN WATER 100 ML IV SCH (21:00)
[2025-05-08] MEDS ORDERED: Cefepime Hydrochloride 2 GM in SODIUM CHLORIDE 0.9% 50 ML IV ONE (21:00)
[2025-05-08] MEDS ORDERED: FENOFIBRATE145 M1 PO (21:03)
[2025-05-08] MEDS ORDERED: MAGNESIUM OXID400 MG PO (21:04)
[2025-05-08] MEDS ORDERED: NITROSTAT0.3 M1 SL (21:06)
[2025-05-08] MEDS ORDERED: PERCOCET 5-3251 EACH PO (21:11)
[2025-05-08] MEDS ORDERED: ELIQUIS5 M1 PO (21:11)
[2025-05-08] MEDS ORDERED: ASPIRIN CHEWABL81 MG PO (21:12)
[2025-05-08] MEDS ORDERED: LIDOCAINE PAIN1 EACH T (21:13)
[2025-05-08] MEDS ORDERED: METHIMAZOLE5 M1 PO (21:14)
[2025-05-08] MEDS ORDERED: NOREPINEPHRINE BITARTRATE/D5W 250 ML IV SCH (23:00)
[2025-05-09] VITALS (14 sets, daily range): BP systolic 85–156; BP diastolic 49–82
[2025-05-09] MEDS ORDERED: ACETAMINOPHEN 650 MG SUPP R PRN (00:05)
[2025-05-09] MEDS ORDERED: Ondansetron Hydrochloride 4 MG/2 ML VIAL IV PRN (00:05)
[2025-05-09] MEDS ORDERED: ACETAMINOPHEN 325 MG TAB PO PRN (00:05)
[2025-05-09] MEDS ORDERED: SODIUM CHLORIDE 0.9% 100 ML BAG IV ONE (02:00)
[2025-05-09] MEDS ORDERED: Iodixanol 320 100 ML VIAL IV ONE (02:00)
[2025-05-09] MEDS ORDERED: Iodixanol 320 100 ML VIAL ONE (02:10)
[2025-05-09] MEDS ORDERED: SODIUM CHLORIDE 0.9% 100 ML IV ONE (02:11)
[2025-05-09 03:03] LABS: BASO # 0.0 10*3/uL (0.0-0.1); BASO % 0.2 % (0.0-1.0); EOS # 0.0 10*3/uL (0.0-0.4); EOS % 0.0 % (1.0-4.0); MEAN CORPUSCULAR HGB 27.4 pg (27.0-31.0); MEAN PLATELET VOLUME 10.7 fl (9.6-12.3); MONO # 1.0 10*3/uL (0.1-1.0); MONO % 5.7 % (3.0-9.0); NEUT # 14.5 10*3/uL (2.3-7.9); NEUT % 85.8 % (47.0-73.0); NUCLEATED RED BLOOD CELL 0.0 10*3/uL (0.0-0.0); NUCLEATED RED BLOOD CELL 0.1 % (0.0-0.0); PLATELET COUNT AUTOMATED 239 10*3/uL (130-400); RED CELL DISTRI WIDTH 18.5 % (0-14.5)
[2025-05-09 03:14] LABS: ACT PARTIAL THROMBO TIME 27.0 SECONDS (20.0-32.1)
[2025-05-09 03:16] LABS: MEAN CELL VOLUME 91.9 fl (81.0-99.0)
[2025-05-09 03:27] LABS: BUN 38.0 mg/dl (9-23)
[2025-05-09] MEDS ORDERED: SODIUM CHLORIDE 0.9% 1,000 ML IV SCH (03:45)
[2025-05-09] MEDS ORDERED: SUCRALFATE 1 GM TAB PO SCH ×2 (04:05→07:30)
[2025-05-09] MEDS ORDERED: DEXTROSE 50% 25 GM/50 ML VIAL IV PRN (04:10)
[2025-05-09 04:45] LABS: ABG BASE EXCESS -6.1 mmol/L (-2.0-3.0); ABG O2 SATURATION 98.5 % (94.0-98.0); ARTERIAL BLOOD GAS PH 7.446 (7.350-7.450); ARTERIAL BLOOD GAS PO2 133.1 mmHg (83.0-108.0)
[2025-05-09] MEDS ORDERED: SODIUM CHLORIDE 0.9% 500 ML IV ONE ×2 (04:58→06:34)
[2025-05-09] MEDS ORDERED: FUROSEMIDE 40 MG/4 ML VIAL IV ONE (06:15)
[2025-05-09] MEDS ORDERED: INSULIN LISPRO 1 UNIT/0.01 ML SQ SCH (07:30)
[2025-05-09] MEDS ORDERED: METOPROLOL SUCCINATE XR 25 MG TAB PO SCH (10:00)
[2025-05-09] MEDS ORDERED: ASPIRIN ENTERIC COATED 81 MG TAB PO SCH (10:00)
[2025-05-09] MEDS ORDERED: ATORVASTATIN CALCIUM 80 MG TAB PO SCH (22:00)
[2025-05-09] MEDS ORDERED: Cefepime Hydrochloride 2 GM in SODIUM CHLORIDE 0.9% 50 ML IV SCH (22:00)
[2025-05-10] MEDS ORDERED: Vancomycin Hydrochloride 1,000 MG in SODIUM CHLORIDE 0.9% 250 ML IV SCH (06:00)
== END 2025-05-09 09:33 | disposition short-term general hospital (02) | DRG 871 ==
LOC: ED 19:53 → EDHOLD 23:07
PROVIDERS: Internal Medicine; Student in an Organized Health Care Education/Training Program; ADMIT Student in an Organized Health Care Education/Training Program; ATTEND Student in an Organized Health Care Education/Training Program
PROC: 5A09357 Assistance with Respiratory Ventilation, Less than 24 Consecutive Hours, Continuous Positive Airway Pressure (ICD-10-PCS; principal; 2025-05-09)
DX: A41.9 Sepsis, unspecified organism (principal); I21.4 Non-ST elevation (NSTEMI) myocardial infarction; J18.9 Pneumonia, unspecified organism; R65.21 Severe sepsis with septic shock; I71.00 Dissection of unspecified site of aorta; I50.32 Chronic diastolic (congestive) heart failure; I13.0 Hypertensive heart and chronic kidney disease with heart failure and stage 1 through stage 4 chronic kidney disease, or unspecified chronic kidney disease; K92.2 Gastrointestinal hemorrhage, unspecified; N17.9 Acute kidney failure, unspecified; E44.0 Moderate protein-calorie malnutrition; I25.110 Atherosclerotic heart disease of native coronary artery with unstable angina pectoris; E87.6 Hypokalemia; E83.42 Hypomagnesemia; D64.9 Anemia, unspecified; N18.31 Chronic kidney disease, stage 3a; K21.9 Gastro-esophageal reflux disease without esophagitis; E83.51 Hypocalcemia; E78.2 Mixed hyperlipidemia; E10.22 Type 1 diabetes mellitus with diabetic chronic kidney disease; I48.0 Paroxysmal atrial fibrillation; Z96.651 Presence of right artificial knee joint; Z88.1 Allergy status to other antibiotic agents; Z88.5 Allergy status to narcotic agent; Z88.0 Allergy status to penicillin; Z95.5 Presence of coronary angioplasty implant and graft; Z87.891 Personal history of nicotine dependence; Z63.4 Disappearance and death of family member; Z83.3 Family history of diabetes mellitus; Z82.49 Family history of ischemic heart disease and other diseases of the circulatory system; Z68.24 Body mass index [BMI] 24.0-24.9, adult